=== PATIENT | male | born 1950 | race Caucasian/White ===

== ENCOUNTER 2023-06-14 08:04 | Outpatient (CLI) | payer MEDICARE, OTHER, SELFPAY ==
[2023-06-14 18:46] LABS: Anion Gap 7 mmol/L (8-16); Blood Urea Nitrogen 15 mg/dL (9-20); CRP < 0.5 mg/dL (<1.0); Calcium 9.5 mg/dL (8.4-10.2); Carbon Dioxide 30 mmol/L (22-30); Chloride 101 mmol/L (98-107); Cholesterol 158 mg/dL (0-200); Estimated Glomerular Filt Rate > 60; Glucose 106 mg/dL (65-110); HDL Direct 52 mg/dL; Sodium 138 mmol/L (137-145); Triglycerides 111 mg/dL (<150)
[2023-06-14 18:55] LABS: LDL Cholesterol Direct 76 mg/dL
[2023-06-14 19:32] LABS: Basophils Absolute Auto 0.1 K/mm3 (0.0-0.1); Basophils Percent Auto 1.3 % (0.2-1.2); Eosinophils Absolute Auto 0.2 K/mm3 (0-0.3); Eosinophils Percent Auto 3.6 % (0-4.4); Hematocrit 49.2 % (42.0-52.0); Hemoglobin 15.7 g/dL (14.0-18.0); Immature Granulocyte Absolute 0.01 K/mm3 (0.00-0.031); Immature Granulocyte Percent A 0.2 % (0-0.5); Lymphocytes Absolute Auto 1.99 K/mm3 (0.9-3.2); Lymphocytes Percent Auto 32.6 % (18.3-44.2); Mean Corpuscular HGB Conc 31.9 g/dl (32-36); Mean Corpuscular Hemoglobin 28.6 pg (26-34); Mean Corpuscular Volume 89.8 fl (80-100); Mean Platelet Volume 11.8 fl (7.4-10.4); Monocytes Absolute Auto 0.6 K/mm3 (0.1-0.6); Neutrophils Absolute Auto 3.2 K/mm3 (1.3-6.7); Neutrophils Percent Auto 52.3 % (45.5-73.1); Platelet Count Result 175 k/mm3 (150-375); Red Blood Count 5.48 M/mm3 (4.6-6.20); Red Cell Distribution Width 12.1 % (11.5-14.5); White Blood Count 6.1 K/mm3 (4.5-10.0)
[2023-06-14 19:59] LABS: Erythrocyte Sedimentation Rate 5 mm/hr (0-20)
== END 2023-06-14 08:05 | disposition home or self-care (01) ==
PROVIDERS: PCP Family Medicine; Visit Provider Family Medicine
DX: E78.2 Mixed hyperlipidemia (principal); I10 Essential (primary) hypertension; R73.03 Prediabetes; R76.8 Other specified abnormal immunological findings in serum
CPT/HCPCS: 36415; 80048; 80061; 83036; 85025; 85652; 86140

== ENCOUNTER → 2023-07-15 08:07 | Outpatient (CLI) | payer MEDICARE, OTHER, SELFPAY ==
--- NOTE | ~2023-07-15 | MR_ITS ---
MRI of the lumbar spine Clinical History: Sciatica Technique: Axial T2-weighted images, and sagittal T1-weighted, T2-weighted, and and T2 fat-sat images were acquired. Findings: There is no fracture or subluxation of the lumbar spine. Vertebral bodies maintain normal h eight and alignment. Intraosseous hemangioma noted in the L3 vertebral body. No suspicious bone marro w signal abnormality seen. At L1-L2, there is mild disc bulge with mild to moderate facet arthropathy. No central canal stenosis or neural foraminal narrowing. At L2-L3, there is mild disc bulge and minimal facet hypertrophy. No central canal stenosis or neural foraminal narrowing. L3-L4, there is degenerative disc narrowing. There is diffuse disc bulge and moderate facet arthropat hy, with mild central canal stenosis. There is moderate bilateral neural foraminal narrowing. At L4-L5, there is disc bulge, especially the right paracentral region, with advanced facet arthropat hy. There is right lateral recess stenosis without america central canal stenosis. There is moderate to advanced right neural foraminal narrowing, and mild left neural foraminal narrowing. At L5-S1, there is minimal disc bulge correlate with advanced facet arthropathy. There is mild right neural foraminal narrowing. No left neural foraminal narrowing. No central canal stenosis. Paravertebral soft tissues are unremarkable. Impression: Moderate degenerative spondylosis, as above. Reviewed, dictated and finalized at [facility]. [employer] INST[employer] Impression: Moderate degenerative spondylosis, as above.
== END ==
PROVIDERS: PCP Chiropractor; Visit Provider Family Medicine
DX: M54.30 Sciatica, unspecified side (principal); M54.17 Radiculopathy, lumbosacral region; M47.896 Other spondylosis, lumbar region
CPT/HCPCS: 72148

== ENCOUNTER 2023-12-13 08:02 | Outpatient (CLI) | payer MEDICARE, OTHER, SELFPAY ==
[2023-12-13 19:37] LABS: Alanine Aminotransferase 36 U/L (6-50); Albumin Level 4.5 g/dL (3.5-5.1); Alkaline Phosphatase 58 U/L (38-126); Anion Gap 5 mmol/L (4-12); Aspartate Amino Transferase 43 U/L (17-59); Bilirubin,Total 1.4 mg/dL (0.2-1.3); Blood Urea Nitrogen 24 mg/dL (9-20); Calcium 9.7 mg/dL (8.4-10.2); Carbon Dioxide 27 mmol/L (22-30); Chloride 104 mmol/L (98-107); Cholesterol 180 mg/dL (0-200); Estimated Glomerular Filt Rate > 60; Glucose 101 mg/dL (65-110); HDL Direct 65 mg/dL; Sodium 136 mmol/L (137-145); Triglycerides 105 mg/dL (<150)
[2023-12-13 19:52] LABS: LDL Cholesterol Direct 97 mg/dL
[2023-12-13 20:42] LABS: Hemoglobin A1C 5.8 % (<5.7)
== END 2023-12-13 08:03 | disposition home or self-care (01) ==
PROVIDERS: PCP Family Medicine; Visit Provider Family Medicine
DX: E11.9 Type 2 diabetes mellitus without complications (principal)
CPT/HCPCS: 36415; 80053; 80061; 83036

== ENCOUNTER 2024-07-04 07:55 | Outpatient (CLI) | payer MEDICARE, OTHER, SELFPAY ==
[2024-07-04 20:46] LABS: Alanine Aminotransferase 43 U/L (6-50); Albumin Level 4.5 g/dL (3.5-5.1); Alkaline Phosphatase 55 U/L (38-126); Anion Gap 9 mmol/L (4-12); Aspartate Amino Transferase 50 U/L (17-59); Bilirubin,Total 2.4 mg/dL (0.2-1.3); Blood Urea Nitrogen 27 mg/dL (9-20); Carbon Dioxide 27 mmol/L (22-30); Chloride 103 mmol/L (98-107); Estimated Glomerular Filt Rate > 60; Glucose 117 mg/dL (65-110); Potassium 4.1 mmol/L (3.4-5.0); Sodium 139 mmol/L (137-145)
[2024-07-04 20:52] LABS: Basophils Absolute Auto 0.1 K/mm3 (0.0-0.1); Basophils Percent Auto 1.4 % (0.2-1.2); Eosinophils Absolute Auto 0.1 K/mm3 (0-0.3); Eosinophils Percent Auto 2.1 % (0-4.4); Hematocrit 44.1 % (42.0-52.0); Hemoglobin 14.7 g/dL (14.0-18.0); Immature Granulocyte Absolute 0.02 K/mm3 (0.00-0.031); Immature Granulocyte Percent A 0.3 % (0-0.5); Lymphocytes Absolute Auto 1.66 K/mm3 (0.9-3.2); Lymphocytes Percent Auto 28.9 % (18.3-44.2); Mean Corpuscular HGB Conc 33.3 g/dl (32-36); Mean Corpuscular Hemoglobin 30.2 pg (26-34); Mean Corpuscular Volume 90.6 fl (80-100); Mean Platelet Volume 11.7 fl (7.4-10.4); Monocytes Absolute Auto 0.6 K/mm3 (0.1-0.6); Monocytes Percent Auto 11.1 % (2.6-8.5); Neutrophils Absolute Auto 3.2 K/mm3 (1.3-6.7); Neutrophils Percent Auto 56.2 % (45.5-73.1); Platelet Count Result 173 k/mm3 (150-375); Red Blood Count 4.87 M/mm3 (4.6-6.20); Red Cell Distribution Width 12.2 % (11.5-14.5); White Blood Count 5.8 K/mm3 (4.5-10.0)
[2024-07-04 21:46] LABS: Hemoglobin A1C 6.2 % (<5.7)
== END 2024-07-04 07:56 | disposition home or self-care (01) ==
PROVIDERS: PCP Family Medicine; Visit Provider Nurse Practitioner Family
DX: C43.9 Malignant melanoma of skin, unspecified (principal); E78.2 Mixed hyperlipidemia; E80.4 Gilbert syndrome; I10 Essential (primary) hypertension; R73.01 Impaired fasting glucose; R73.03 Prediabetes
CPT/HCPCS: 36415; 80053; 83036; 84443; 85025

== ENCOUNTER 2024-09-25 00:39 | Day surgery (SDC) | payer MEDICARE, OTHER, SELFPAY ==
[2024-09-17 15:07] VITALS: BMI 30.2
--- OUTSIDE RECORDS SUMMARY | 2024-09-25 00:43 | XMS_ITS | Encounter Summary ---
Author Organization [facility] Health Address [address] [facility] [place] [address] Care Team Providers Care Treater Helper Name Role Phone Jc Ascencio MD Primary Care Provider +1- [phone] Encounter Details Date Type Department Care Team (Late st Contact Info) Description 02/08/2020 Lab Requisition [facility] Care DermPath Lab [address] [facility], [place] [phone] Karis James MD [address] [facility] 3 [place] [address] Social History Tobacco Use Types Packs/Day Years Used Date Smoking Tobacco: Former Smokeless Tobacco: Never Alcohol Use Standard Drinks/Week Comments Yes 0 (1 standard drink = 0.6 oz pur e alcohol) Sex and Gender Information Value Date Recorded Sex Assigned at Not on file Gender Identity Not on file Sexual Orientation Not on file documented as of this encounter Plan of Treatment Not on file documented as of this encounter Procedures Procedure Name Priority Date/Time Associated Diagnosis Comments DERMATOPATHOLOGY Routine 02/07/2020 12:0 0 AM CDT documented in this encounter Results * DERMATOPATHOLOGY (02/07/2020 12:00 AM CDT) Case Report Dermatopathology Report ? Case: [id number] ? Authorizing Provider: ??Karis James MD ?Collected: ? 02/07/2020 12:00 AM ? Ordering Location: ? [facility] DermPath Lab ?Received: ?02/08/2020 09:18 AM ? Pathologist: ? Chetna Schilling MD ? Specimen: ?Skin, left back ? 0 2:53 PM CDT DERMATOPATHOLOGY LABORATORY Final Diagnosis Specimen A. SKIN, left back: LICHEN PLANUS-LIKE KERATOSIS (BENIGN LICHENOID KERATOSIS) (L82.1) 0 2:53 PM CDT DERMATOPATHOLOGY LABORATORY Clinical History R/O BCC, nevus, MM 0 2:53 PM CDT DERMATOPATHOLOGY LABORATORY Gross Description Specimen A: Received is one formalin filled container labeled with the patient's name and designated left back. The specimen consists of a shave biopsy measuring 9x6x1 mm. Jar 0. 0 2:53 PM CDT DERMATOPATHOLOGY LABORATORY Microscopic Description Specimen A. SKIN, left back: The epidermis is mildly acanthotic. There is a lichenoid infiltrate with vacuolar changes of basilar keratinocytes and scattered necrotic keratinocytes. 0 2:53 PM CDT DERMATOPATHOLOGY LABORATORY Disclaimer An external and internal positive and negative controls are appropriate for the histochemical, immunohistochemical and immunofluorescence stain(s) in this case (if any), except where stated explicitly. The performance characteristics of the stain(s) cited in this report were developed and its performance characteristic determined by the Dermatopathology Laboratory at [facility], directed by Dr. Shereen Awan. These tests need not be, and therefore are not, approved by the [place] Food and Drug Administration. The tests are used for clinical purposes. Billing Codes Specimen Charges Stain Charges 39629 1 0 2:53 PM CDT DERMATOPATHOLOGY LABORATORY Embedded Images 0 2:53 PM CDT DERMATOPATHOLOGY LABORATORY Pathology/Cytolog y TISSUE SPECIMEN FROM SKIN / Unknown 02/07/2020 02/08/2020 9:18 AM CDT Karis James MD LAB - PATHOLOGY/CYTO LOGY ORDERABLES DERMATOPATHOLOGY LABORATORY [facility] - Department of Dermatology [facility]/[address] [phone] documented in this encounter Visit Diagnoses Not on filedocumented in this encounter Care Teams Treater Helper Relationship Specialty Start Date End Date Jc Ascencio MD [facility] [place] [phone] PCP - General 01/09/14 documented as of this encounter
--- OUTSIDE RECORDS SUMMARY | 2024-09-25 00:43 | XMS_ITS | Encounter Summary ---
Author Organization [facility] Health Address [address] [facility] [address] Care Team Providers Care Rn Ccu Name Role Phone Jc Ascencio MD Primary Care Provider +1- [phone] Encounter Details Date Type Department Care Team (Late st Contact Info) Description 08/10/2023 Lab Requisition [facility] - DermPath Lab [address] [facility], [place] [address] Karis James MD [address] [facility] 3 [place] [address] Social History Tobacco Use Types Packs/Day Years [...] Priority Date/Time Associated Diagnosis Comments DERMATOPATHOLOGY Routine 08/10/2023 11:0 7 AM PERFUME COMPOUNDER documented in this encounter Results * DERMATOPATHOLOGY (08/10/2023 11:07 AM PERFUME COMPOUNDER) Case Report Dermatopathology Report ? Case: [id number] ? Authorizing Provider: ??Karis James MD ?Collected: ? 08/10/2023 11:07 AM ? Ordering Location: ? [facility] DermPath Lab ? Received: ?08/11/2023 12:52 PM ? Pathologist: ? Jessika Roldan MD ? Specimens: ?? A) - Skin, crown ? B) - Skin, left eyelid ? 3 3:35 PM PERFUME COMPOUNDER DERMATOPATHOLOGY LABORATORY Final Diagnosis Specimen A. 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 SKIN, left eyelid: SUBACUTE SPONGIOTIC DERMATITIS (L30.8) EPIDERMAL NECROSIS SUGGESTIVE OF EXCORIATION (L98.499) (see microscopic description and comment) 3 3:35 PM PERFUME COMPOUNDER DERMATOPATHOLOGY LABORATORY Clinical History A: [place] Papule SCC B: ACD/ Drug / Immunobullous 3 3:35 PM PERFUME COMPOUNDER DERMATOPATHOLOGY LABORATORY Gross Description Specimen A: Received is one formalin filled container labeled with the patient's name and designated crown. The specimen consists of a shave biopsy measuring 6x6x3 mm. Jar 0. Specimen B: Received is one formalin filled container labeled with the patient's name and designated left eyelid. The specimen consists of a punch biopsy measuring 3x2x3 mm. Jar 0. 3 3:35 PM [facility] DERMATOPATHOLOGY LABORATORY Microscopic Description Specimen A. SKIN, crown: The epidermis shows parakeratosis, full thickness disorderly maturation of keratinocytes, mitoses at different levels, and dyskeratotic cells. Specimen B. SKIN, left eyelid: There is focal parakeratosis and spongiosis of the epidermis. In the dermis there is a mainly superficial perivascular lymphoid infiltrate. Eosinophils are not appreciated. The epidermis is focally necrotic and covered with a scale-crust. There is fibrin at the base. A focal perifollicular lymphohistiocytic infiltrate is noted. Acantholysis is not seen. Grocott's methenamine silver (GMS) stain is negative for fungal elements in the sections examined. Additional deeper sections were obtained and reviewed. COMMENT: The histologic differential diagnosis includes an eczematous dermatitis, and less likely a hypersensitivity reaction, such as to contact or drug, given the lack of eosinophils. Although less favored, an immunobullous process cannot be entirely excluded. If there is clinical concern for a diagnosis of an immunobullous process, consideration should be given to submitting tissue for direct immunofluorescence. 3 3:35 PM [facility] DERMATOPATHOLOGY LABORATORY Disclaimer An external and internal positive and negative controls are appropriate for the histochemical, immunohistochemical and immunofluorescence stain(s) in this case (if any), except where stated explicitly. The performance characteristics of the stain(s) cited in this report were developed and its performance characteristic determined by the Dermatopathology Laboratory at [facility], directed by Dr. Shereen Awan. These tests need not be, and therefore are not, approved by the [place] Food and Drug Administration. The tests are used for clinical purposes. Billing Codes Specimen Charges Stain Charges 62465 11713 1 1 11380 18522 1 1 3 3:35 PM [facility] DERMATOPATHOLOGY LABORATORY Embedded Images 3 3:35 PM [facility] DERMATOPATHOLOGY LABORATORY Pathology/Cytology TISSUE SPECIMEN FROM SKIN / Unknown 08/10/2023 11:07 AM PERFUME COMPOUNDER 08/11/2023 12:52 PM PERFUME COMPOUNDER Miscellaneous samples (specimen) TISSUE SPECIMEN FROM SKIN / Unknown 08/10/2023 11:07 AM PERFUME COMPOUNDER 08/11/2023 12:52 PM PERFUME COMPOUNDER Karis James MD LAB - PATHOLOGY/CYTO LOGY ORDERABLES DERMATOPATHOLOGY LABORATORY [facility] - Department of Dermatology [facility] Medicine [address] [place] [address], [address] [phone] documented in this encounter Visit Diagnoses Not on filedocumented in this encounter Care Teams Rn Ccu Relationship Specialty Start Date End Date Jc Ascencio MD [address] [place] [phone] PCP - General 01/09/14 documented as of this encounter
--- OUTSIDE RECORDS SUMMARY | 2024-09-25 00:43 | XMS_ITS | Encounter Summary ---
Author Organization [facility] Health Address [address] [facility] [place] [address] Care Team Providers Care Schedule Clerk Name Role Phone Jc Ascencio MD Primary Care Provider +1- [phone] Encounter Details Date Type Department Care Team (Late st Contact Info) Description 11/08/2023 Lab Requisition [facility] - DermPath Lab [address] [facility], [place] [address] Karis James MD [address] [facility] [address] [place] [address] Social History Tobacco Use Types Packs/Day Years [...] Priority Date/Time Associated Diagnosis Comments DERMATOPATHOLOGY Routine 11/08/2023 9:32 AM CDT documented in this encounter Results * DERMATOPATHOLOGY (11/08/2023 9:32 AM CDT) Case Report Dermatopathology Report ? Case: [id number] ? Authorizing Provider: ??Karis James MD ?Collected: ? 11/08/2023 09:32 AM ? Ordering Location: ? [facility] - ??Received: ?11/09/2023 06:36 AM ? DermPath Lab ? Pathologist: ? Simone Awan MD ? Specimen: ?Skin, crown anterior ? 4 5:29 PM CDT DERMATOPATHOLOGY LABORATORY Final Diagnosis Specimen A. SKIN, crown anterior: HYPERPLASTIC (HYPERTROPHIC) ACTINIC KERATOSIS (L57.0) 4 5:29 PM CDT DERMATOPATHOLOGY LABORATORY Clinical History Tender [place] Papula [place] vs SCC 4 5:29 PM CDT DERMATOPATHOLOGY LABORATORY Gross Description Specimen A: Received is one formalin filled container labeled with the patient's name and designated crown anterior. The specimen consists of a shave biopsy measuring 4x4x2 mm. Jar 0. 4 5:29 PM CDT DERMATOPATHOLOGY LABORATORY Microscopic Description Specimen A. SKIN, crown anterior: There is hyperkeratosis alternating with parakeratosis. There is epidermal hyperplasia with disorderly maturation of keratinocytes with nuclear pleomorphism confined to the lower half of the epidermis. 4 5:29 PM CDT DERMATOPATHOLOGY LABORATORY Disclaimer An external and internal positive and negative controls are appropriate for the histochemical, immunohistochemical and immunofluorescence stain(s) in this case (if any), except where stated explicitly. The performance characteristics of the stain(s) cited in this report were developed and its performance characteristic determined by the Dermatopathology Laboratory at [facility], directed by Dr. Shereen Awan. These tests need not be, and therefore are not, approved by the [place] Food and Drug Administration. The tests are used for clinical purposes. Billing Codes Specimen Charges Stain Charges 46263 1 4 5:29 PM CDT DERMATOPATHOLOGY LABORATORY Embedded Images 4 5:29 PM CDT DERMATOPATHOLOGY LABORATORY Pathology/Cytolo gy TISSUE SPECIMEN FROM SKIN / Unknown 11/08/2023 9:32 AM CDT 11/09/2023 6:36 AM CDT Karis James MD LAB - PATHOLOGY/CYTO LOGY ORDERABLES DERMATOPATHOLOGY LABORATORY [facility] - Department of Dermatology [facility] Medicine [address] [place] [address], [address] [phone] documented in this encounter Visit Diagnoses Not on filedocumented in this encounter Care Teams Schedule Clerk Relationship Specialty Start Date End Date Jc Ascencio MD [address] [place] [phone] PCP - General 01/09/14 documented as of this encounter
--- OUTSIDE RECORDS SUMMARY | 2024-09-25 00:43 | XMS_ITS | Clinical Summary ---
Author Organization [facility] Address [address] [place] [address] Care Team Providers Care Engine Hostler Name Role Phone Jc Ascencio MD Primary Care Provider +1- [phone] Source Comments [facility] Affiliates and Associated Physician Practices is amultiple site organization consisting of ambulatory clinics and hospital sitesin [place], [place], [place] and [place]. This disclosure is being madepursuant to the Care Everywhere program and may not contain all information available regarding this patient. 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 Social History Tobacco Use Types Packs/Day Years Used Date Smoking Tobacco: Former Smokeless Tobacco: Never Alcohol Use Standard Drinks/Week Comments Yes 0 (1 standard drink = 0.6 oz pur e alcohol) Sex and Gender Information Value Date Recorded Sex Assigned at Not on file Gender Identity Not on file Sexual Orientation Not on file Last Filed Vital Signs Vital Sign Reading Time Taken Comments Blood Pressure 154/82 01/21/2016 9:07 AM CDT Pulse 74 01/21/2016 9:07 AM CDT Temperature 36.5 ??C (97.7 ??F) 01/21/2016 9:07 AM CD T Respiratory Rate - - Oxygen Saturation 95% 01/09/2014 9:13 AM CDT Inhaled Oxygen Concentration - - Weight 86.2 kg (190 lb) 01/21/2016 9:07 AM CDT Height 175.3 cm (5' 9 ) 01/21/2016 9:07 AM CDT Body Mass Index 28.06 01/21/2016 9:07 AM CDT Plan of Treatment Health Maintenance Due Date Last Done Comments NAEL (TRUPTI 45-75) - COL ON CA SCREENING 1949 COLON MONITORING 1949 COLONOSCOPY - COLON CA SCREENING 1949 CT COLONOGRAPHY - COLON CA SCREENING 1950 Colorectal Cancer Screening 1949 FIT - COLON CA SCREENING 1949 FLEX SIG - COLON CA SCREENING 1949 LIPID TESTING 1950 MEDICARE AWV ? 12 MONTHS 1950 HEPATITIS C SCREENING 01/23/1967 DTAP/TDAP/TD VACCINES (1 - Tdap) 01/28/1968 PNEUMOCOCCAL VACCINE 50+ (1 of 1 - PCV) 1999 ZOSTER VACCINE (1 of 2) 1999 Respiratory Syncytial Virus (RSV) Vaccine Pt: or over 60 yrs (1 - 1-dose 75+ series) 01/28/2024 COVID-19 VACCINE ( - 2023-2 5 season) 2024 INFLUENZA VACCINE (#1) 2024 DEPRESSION SCREENING 08/29/2024 HEPATITIS B VACCINE Aged Out No longe r eligible based on patient's age to complete this topic HIB VACCINE Aged Out No longer eligi ble based on patient's age to complete this topic HPV VACCINE Aged Out No longer eligi ble based on patient's age to complete this topic MENINGOCOCCAL (Group B) VACCINE Aged Out No longer eligible based on patient's age to complete this topic MENINGOCOCCAL VACCINE Aged Out No rodrigue clifford eligible based on patient's age to complete this topic Care Teams Engine Hostler Relationship Specialty Start Date End Date Jc Ascencio MD [address] [place] [phone] PCP - General 01/09/14
--- OUTSIDE RECORDS SUMMARY | 2024-09-25 00:43 | XMS_ITS | Referral Summary ---
Author Organization [facility] Address [address] [place] [address] Care Team Providers Care Senior Principal Architect Name Role Phone Jc Ascencio MD Primary Care Provider +1- [phone] [facility] Affiliates and Associated Physician Practices is amultiple site organization consisting of ambulatory clinics and hospital sitesin [place], [place], [place] and [place]. This disclosure is being madepursuant to the Care Everywhere program and may not contain all information available regarding this patient. Last updated 18.[facility] Active Problems Problem Noted Date Diagnosed Date [...] 01/21/2016 9:07 AM CDT Plan of Treatment Not on file Care Teams Senior Principal Architect Relationship Specialty Start Date End Date Jc Ascencio MD [address] [place] [phone] PCP - General 01/09/14
--- OUTSIDE RECORDS SUMMARY | 2024-09-25 00:43 | XMS_ITS | Encounter Summary ---
Author Organization [facility] Health Address [address] [facility] [place] [address] Care Team Providers Care Last Greaser Name Role Phone Jc Ascencio MD Primary Care Provider +1- [phone] Encounter Details Date Type Department Care Team (Late st Contact Info) Description 03/26/2024 Lab Requisition [facility] - DermPath Lab [address] [facility] [place] [address] Karis James MD [address] [facility] 3 [place] [address] Social History Tobacco Use Types Packs/Day Years [...] Priority Date/Time Associated Diagnosis Comments DERMATOPATHOLOGY Routine 03/26/2024 10:1 4 AM CDT documented in this encounter Results * DERMATOPATHOLOGY (03/26/2024 10:14 AM CDT) Case Report Dermatopathology Report ? Case: [id number] ? Authorizing Provider: ??Karis James MD ?Collected: ? 03/26/2024 10:14 AM ? Ordering Location: ? [facility] - ??Received: ?03/26/2024 04:25 PM ? DermPath Lab ? Pathologist: ? Fide Rizzo, ? MD ? Specimen: ?Skin, back ? 4 11:44 AM CDT DERMATOPATHOLOGY LABORATORY Final Diagnosis Specimen A. SKIN, back: GRANULOMATOUS DERMATITIS CONSISTENT WITH A RUPTURED CYST OR HAIR FOLLICLE (L72.0) 4 11:44 AM CDT DERMATOPATHOLOGY LABORATORY Clinical History R/o BCC; pink papule 11:44 AM CDT DERMATOPATHOLOGY LABORATORY Gross Description Specimen A: Received is one formalin filled container labeled with the patient's name and designated back. The specimen consists of a shave biopsy measuring 4x4x1 mm. Jar 0. 4 11:44 AM T DERMATOPATHOLOGY LABORATORY Microscopic Description Specimen A. SKIN, back: Neutrophils, histiocytes, and multinucleated giant cells are present within the dermis. 4 11:44 AM T DERMATOPATHOLOGY LABORATORY Disclaimer An external and internal positive and negative controls are appropriate for the histochemical, immunohistochemical and immunofluorescence stain(s) in this case (if any), except where stated explicitly. The performance characteristics of the stain(s) cited in this report were developed and its performance characteristic determined by the Dermatopathology Laboratory at [facility], directed by Dr. Shereen Awan. These tests need not be, and therefore are not, approved by the [place] Food and Drug Administration. The tests are used for clinical purposes. Billing Codes Specimen Charges Stain Charges 51511 1 4 11:44 AM CDT DERMATOPATHOLOGY LABORATORY Embedded Images 11:44 AM CDT DERMATOPATHOLOGY LABORATORY Pathology/Cytolo gy TISSUE SPECIMEN FROM SKIN / Unknown 03/26/2024 10:14 AM CDT 03/26/2024 4:25 PM CDT Karis James MD LAB - PATHOLOGY/CYTO LOGY ORDERABLES DERMATOPATHOLOGY LABORATORY [facility] - Department of Dermatology [facility] Medicine [address] [place] [address], [address] [phone] documented in this encounter Visit Diagnoses Not on filedocumented in this encounter Care Teams Last Greaser Relationship Specialty Start Date End Date Jc Ascencio MD [address] [place] [phone] PCP - General 01/09/14 documented as of this encounter
--- OUTSIDE RECORDS SUMMARY | 2024-09-25 00:43 | XMS_ITS | Encounter Summary ---
Author Organization [facility] Health Address [address] [place] [address] Care Team Providers Care Top Flavor Attendant Name Role Phone Jc Ascencio MD Primary Care Provider +1- [phone] Encounter Details Date Type Department Care Team (Late st Contact Info) Description 01/11/2019 Lab Requisition [facility] DermPath Lab [address] [place] [phone] Karis James MD [address] [facility] 3 [place] [address] Social History Tobacco Use Types Packs/Day Years [...] Priority Date/Time Associated Diagnosis Comments DERMATOPATHOLOGY Routine 01/10/2019 12:0 0 AM CDT documented in this encounter Results * DERMATOPATHOLOGY (01/10/2019 12:00 AM CDT) Case Report Dermatopathology Report ? Case: [id number] ? Authorizing Provider: ??Karis James MD ?Collected: ? 01/10/2019 12:00 AM ? Pathologist: ? Simone Awan MD ? Received: ?01/11/2019 06:18 AM ? Specimen: ?Skin, left lat cheek ? 9 2:30 PM CDT DERMATOPATHOLOGY LABORATORY Final Diagnosis Specimen A. SKIN, left lat cheek: BASAL CELL CARCINOMA, INFILTRATIVE PATTERN (C44.319) 9 2:30 PM CDT DERMATOPATHOLOGY LABORATORY Clinical History Pearly papule adj to prior MM favor BCC 9 2:30 PM CDT DERMATOPATHOLOGY LABORATORY Gross Description Specimen A: Received is one formalin filled container labeled with the patient's name and designated left lat cheek. The specimen consists of a shave biopsy measuring 11x8x1 mm. Jar 0. 9 2:30 PM CDT DERMATOPATHOLOGY LABORATORY Microscopic Description Specimen A. SKIN, left lat cheek: Within the dermis there are nodular aggregates of basaloid cells associated with fibromyxoid stroma and epithelial-stromal clefts. At the advancing margin of the neoplasm, there are smaller angulated nests that infiltrate the dermis. 9 2:30 PM CDT DERMATOPATHOLOGY LABORATORY Disclaimer An external and internal positive and negative controls are appropriate for the histochemical, immunohistochemical and immunofluorescence stain(s) in this case (if any), except where stated explicitly. The performance characteristics of the stain(s) cited in this report were developed and its performance characteristic determined by the Dermatopathology Laboratory at [facility], directed by Dr. Shereen Awan. These tests need not be, and therefore are not, approved by the [place] Food and Drug Administration. The tests are used for clinical purposes. Billing Codes Specimen Charges Stain Charges 76541 1 9 2:30 PM CDT DERMATOPATHOLOGY LABORATORY Embedded Images 9 2:30 PM CDT DERMATOPATHOLOGY LABORATORY Pathology/Cytolog y TISSUE SPECIMEN FROM SKIN / Unknown 01/10/2019 01/11/2019 6:18 AM CDT Karis James MD LAB - PATHOLOGY/CYTO LOGY ORDERABLES DERMATOPATHOLOGY LABORATORY [facility] - Department of Dermatology [address] [place] [address], 5th Floor Lab B [address] [phone] documented in this encounter Visit Diagnoses Not on filedocumented in this encounter Care Teams Top Flavor Attendant Relationship Specialty Start Date End Date Jc Ascencio MD [facility] [place] [address] PCP - General 01/09/14 documented as of this encounter
--- OUTSIDE RECORDS SUMMARY | 2024-09-25 00:43 | XMS_ITS | Patient Health Summary ---
Author Organization [facility] Address [address] [place] [address] Care Team Providers Care C Wpf Developer Name Role Phone Jc Ascencio MD Primary Care Provider [phone]- [phone] Note from [facility],non-owned Affiliates and Associated Physician Practices is amultiple site organization consisting of ambulatory clinics and hospital sitesin [place], [place], [place] and [place]. This disclosure is being madepursuant to the Care Everywhere program and may not contain all information available regarding this patient. Last updated 18.[facility] Active Problems Problem Noted Date Diagnosed Date [...] Mass Index 28.06 01/21/2016 9:07 AM CDT Procedures * DERMATOPATHOLOGY(Performed 03/26/2024) * DERMATOPATHOLOGY(Performed 11/08/2023) * DERMATOPATHOLOGY(Performed 08/10/2023) * DERMATOPATHOLOGY(Performed 09/29/2022) * DERMATOPATHOLOGY(Performed 03/18/2022) * DERMATOPATHOLOGY(Performed 09/07/2021) * DERMATOPATHOLOGY(Performed 02/23/2021) * DERMATOPATHOLOGY(Performed 02/07/2020) * DERMATOPATHOLOGY(Performed 01/10/2019) * COMPREHENSIVE METABOLIC PANEL(Performed 01/21/2016) * CBC W/O DIFFERENTIAL(Performed 01/21/2016) * XR CHEST 2VW(Performed 01/21/2016) * XR CHEST 2VW(Performed 01/15/2015) * COMPREHENSIVE METABOLIC PANEL(Performed 01/15/2015) * CBC W/O DIFFERENTIAL(Performed 01/15/2015) * COMPREHENSIVE METABOLIC PANEL(Performed 01/09/2014) * CBC W/O DIFFERENTIAL(Performed 01/09/2014) * XR CHEST 2VW(Performed 01/09/2014) * XR CHEST 2VW(Performed 01/03/2013) * COMPREHENSIVE METABOLIC PANEL(Performed 01/03/2013) * CBC W/O DIFFERENTIAL(Performed 01/03/2013) * DERMATOPATHOLOGY(Performed 12/28/2012) * XR CHEST 2VW(Performed 07/05/2012) * CBC W/O DIFFERENTIAL(Performed 07/05/2012) * COMPREHENSIVE METABOLIC PANEL(Performed 07/05/2012) * DERMATOPATHOLOGY(Performed 06/08/2012) * CBC W/O DIFFERENTIAL(Performed 01/05/2012) * COMPREHENSIVE METABOLIC PANEL(Performed 01/05/2012) * DERMATOPATHOLOGY(Performed 11/25/2011) * COMPREHENSIVE METABOLIC PANEL(Performed 06/30/2011) * CBC W/O DIFFERENTIAL(Performed 06/30/2011) * PATHOLOGY/GENETICS HISTORICAL-ONBASE(Performed 04/16/2011) * PATHOLOGY REPORTS - HPF HISTORICAL(Performed 06/19/2010) Results * DERMATOPATHOLOGY (03/26/2024 10:14 AM CDT) Only the most recent of12 resultswithin the time period is included. Case Report Dermatopathology Report ? Case: [id number] ? Authorizing Provider: ??Karis James MD ?Collected: ? 03/26/2024 10:14 AM ? Ordering Location: ? [facility] - ??Received: ?03/26/2024 04:25 PM ? DermPath Lab ? Pathologist: ? Fide Rizzo, ? MD ? Specimen: ?Skin, back ? 4 11:44 AM CDT DERMATOPATHOLOGY LABORATORY Final Diagnosis Specimen A. SKIN, back: GRANULOMATOUS DERMATITIS CONSISTENT WITH A RUPTURED CYST OR HAIR FOLLICLE (L72.0) 11:44 AM T DERMATOPATHOLOGY LABORATORY Clinical History R/o BCC; pink papule 11:44 AM CDT DERMATOPATHOLOGY LABORATORY Gross Description Specimen A: Received is one formalin filled container labeled with the patient's name and designated back. The specimen consists of a shave biopsy measuring 4x4x1 mm. Jar 0. 11:44 AM T DERMATOPATHOLOGY LABORATORY Microscopic Description Specimen A. SKIN, back: Neutrophils, histiocytes, and multinucleated giant cells are present within the dermis. 11:44 AM T DERMATOPATHOLOGY LABORATORY Disclaimer An external and internal positive and negative controls are appropriate for the histochemical, immunohistochemical and immunofluorescence stain(s) in this case (if any), except where stated explicitly. The performance characteristics of the stain(s) cited in this report were developed and its performance characteristic determined by the Dermatopathology Laboratory at [facility], directed by Dr. Shereen Awan. These tests need not be, and therefore are not, approved by the [place] Food and Drug Administration. The tests are used for clinical purposes. Billing Codes Specimen Charges Stain Charges 88384 1 11:44 AM CDT DERMATOPATHOLOGY LABORATORY Embedded Images 11:44 AM CDT DERMATOPATHOLOGY LABORATORY Pathology/Cytolo gy TISSUE SPECIMEN FROM SKIN / Unknown 03/26/2024 10:14 AM CDT 03/26/2024 4:25 PM CDT Karis James MD LAB - PATHOLOGY/CYTO LOGY ORDERABLES DERMATOPATHOLOGY LABORATORY [facility] - Department of Dermatology [address], [address] [phone] * CBC W/O DIFFERENTIAL (01/21/2016 10:24 AM CDT) Only the most recent of7 resultswithin the time period is included. WBC 4.9 3.5 - 10.5 10? 3 /uL [facility] RBC 5.10 4.30 - 5.70 10? 6 /uL [facility] Hemoglobin 14.8 13.5 - 17.5 g/dL [facility] Hematocrit 44.6 39.0 - 50.0 % [facility] MCV 87.5 81.0 - 97.0 fL [facility] MCH 29.0 28.0 - 34.0 pg [facility] MCHC 33.2 32.0 - 36.0 g/dL [facility] Platelet Count 166 150 - 400 10? 3 /uL [facility] RDW-SD 41.4 36.0 - 50.0 fL [facility] RDW-CV 12.9 11.2 - 14.8 % [facility] MPV 11.7 9.3 - 12.8 fL [facility] nRBC Absolute 0.00 0 10? 3 /uL [facility] nRBC Auto 0.0 0 /100 WBC [facility] Blood specimen (specimen) BLOOD SPECIMEN / Unknown 01/21/2016 10:24 AM CDT 01/21/2016 10:50 AM CDT Bradley Walters MD LAB - HEMATOLOGY ORD ERABLES [address] [phone] * (ABNORMAL) COMPREHENSIVE METABOLIC PANEL (01/21/2016 10:24 AM CDT) Only the most recent of7 resultswithin the time period is included. BUN 18 7 - 26 mg/dL [facility] Creatinine 1.0 0.6 - 1.2 mg/dL [facility] Sodium 140 136 - 145 mmol/L [facility] Potassium 4.6(H) 3.5 - 4.5 mmol/L [facility] Chloride 105 98 - 107 mmol/L [facility] CO2 27 22 - 29 mmol/L [facility] Glucose 99 70 - 115 mg/dL [facility] Calcium 9.7 8.4 - 10.2 mg/dL [facility] Protein Total 7.4 6.0 - 8.3 g/dL [facility] Albumin 4.3 3.4 - 5.0 g/dL [facility] [address] LABORATORY [facility] Bilirubin Total 1.1 0.2 - 1.2 mg/dL [facility] Alkaline Phosphatase 56 40 - 150 Units/L [facility] ALT 20 0 - 55 Units/L [facility] AST 24 5 - 34 Units/L [facility] Anion Gap 13 8 - 18 [facility] BUN/Creatinine Ratio 18 7 - 23 [facility] Osmolality Calculated 292 270 - 300 mOsm/kg [facility] Albumin/Globulin Ratio 1.4 1.1 - 2.3 [facility] eGFR >60 >60 mL/min/1.7 3 m2 [facility] Blood specimen (specimen) BLOOD SPECIMEN / Unknown 01/21/2016 10:24 AM CDT 01/21/2016 10:50 AM CDT Bradley Walters MD LAB - CHEMISTRY [facility] Organization Address City/State/ZIP Co de Phone Number [address] [phone] * XR CHEST 2VW (01/21/2016 10:14 AM CDT) Only the most recent of5 resultswithin the time period is included. Anatomical Region Laterality Modality Chest Other Impressions 01/22/2016 4:06 PM CDT Impression: No radiographic evidence of metastatic disease Dictated by Sachin Hernandez MD This report was approved ??by Ran Hernandez ?? on 01/22/2016 3:37 PM . I, Dr. ERICA MIRZA M.D. have personally reviewed and interpreted this examination/study. This report was electronically signed by ERICA MIRZA M.D. ??on 01/22/2016 4:06 PM . Narrative 01/22/2016 4:06 PM CDT Exam: XR CHEST PA AND LATERAL Date: 01/21/2016 10:14 AM History: melanoma Comparison: 01/15/2015 Findings: There is no focal consolidation, pleural effusion, or pneumothorax. ??The cardiomediastinal silhouette is normal. The aorta is atherosclerotic. The visible bony thorax is intact. Procedure Note Erica Mirza MD - 11/26/2017 Exam: XR CHEST PA AND LATERAL Date: 01/21/2016 10:14 AM History: melanoma Comparison: 01/15/2015 Findings: There is no focal consolidation, pleural effusion, or pneumothorax. Thecardiomediastinal silhouette is normal. The aorta is atherosclerotic. Thevisible bony thorax is intact. IMPRESSION Impression: No radiographic evidence of metastatic disease Dictated by Sachin Hernandez MD This report was approved by Ran Hernandez on 01/22/2016 3:37 PM . I, Dr. ERICA MIRZA M.D. have personally reviewed and interpreted thisexamination/study. This report was electronically signed by ERICA MIRZA M.D. on 01/22/20164:06 PM . Bradley Walters MD DIAGNOSTIC IMAGING O RDERABLES * PATHOLOGY/GENETICS HISTORICAL-ONBASE (04/16/2011) 04/16/2011 Historical Provider LAB - CHEMISTRY O RDGUSTAVO [facility] * PATHOLOGY REPORTS - HPF HISTORICAL (06/19/2010 6:40 PM CDT) 06/19/2010 6:40 PM CDT Narrative [facility] - 06/19/2010 6:40 PM CDT Bradley Walters MD LAB - PATHOLOGY/CYTO LOGY ORDERABLES [facility] Care Teams C Wpf Developer Relationship Specialty Start Date End Date Jc Ascencio MD [address] [place] [phone] PCP - General 01/09/14
--- NOTE | 2024-09-25 06:42 | WPDANESEPPF ---
Anes - Initial Pre Proc Eval Procedure: Operation Date: 09/25/24 08:00 Proposed Procedures p Colonoscopy - Vincenzo Sumner MD Date/Time: 09/25/24 06:42 Surgeon: Vincenzo Sumner MD Pre Op Diagnosis: Personal Hx of colon polyps Patient Data Age: 74 Gender: M Height: 1.78 m Weight: 95.5 kg Allergies Allergy/AdvReac Type Severity Reaction Status Date / Time No Known Allergies Allergy Verified 09/17/24 14:58 Home Medications ?Medication ?Instructions ?Recorded ?Confirmed ?Type simvastatin 20 mg tablet See Rx Instructions .Route 06/14/24 09/17/24 Rx .COMPLEX #90 tabs lisinopril 20 1 tablet PO DAILY #90 tabs 07/10/24 09/17/24 Rx mg-hydrochlorothiazide 12.5 mg tablet metoprolol succinate 25 mg 25 mg PO DAILY #90 tabs 07/10/24 09/17/24 Rx tablet,extended release 24 hr Patient hx anesthesia problems: none Family hx anesthesia problems: none Results Review: All pre-operative results and documents have been reviewed as part of the pre-operative evaluation. [facility] Past Medical History Medical History Personal history of malignant neoplasm of prostate H/O prostate cancer Arthritis Hypertension Hyperlipidemia Family History Family History Father Family history of cardiovascular disease Mother Family history of malignant neoplasm Other Family history of elevated blood lipids Hypertension Malignant neoplasm of prostate Social History Social History Smoking status: Never smoker Smoking end date: 08/29/81 Alcohol intake: former Alcohol use details: NONE DUE TO August BUT WILL RESUME IN SEP Substance use: never Substance use type: does not use Lack of Transportation: No Lack of Food: Never True Current Housing: I Have Housing Concerned About Future Housing: No Difficulty Paying Gas/Electric Bills: No Difficulty Paying for Meds: Decline to Answer Currently Unemployed: Decline to Answer Education: Bachelor's Degree Difficulty w/ Childcare or Family Care: Decline to Answer Living arrangements: with family Spiritual care concerns: No Anes - Eval Final PreProcedure Day of Procedure 09/25/24 06:42 Patient weight: overweight Heart: regular rate and rhythm Lungs: clear to auscultation Airway: Mallampati scale class II Neurological: alert and oriented Last oral intake: >/= 8 hours ASA classification: II Emergent: no Anesthetic plan: proceed Anesthesia type and monitoring: general GIVS and standard monitoring Results Review: All pre-operative results and documents have been reviewed as part of the pre-operative evaluation. HTN, hyperlipidemia. Informed Consent: The patient's anesthetic plan and its attendant risks and benefits were discussed with the patient/family/POA. Questions were solicited and answers provided to the satisfaction of the patient/family/POA.
[2024-09-25 06:50] VITALS: BP 148/79; PULSE 70; RESP 18; TEMP 36; O2SAT 97; BMI 29.5
[2024-09-25] MEDS: LACTATED RINGERS 1,000 ML 150 ML IV CONT (06:59)
--- NOTE | 2024-09-25 07:57 | PM.IMHP ---
H&P: HPI History of Present Illness Date/Time: 09/25/24 07:57 Chief Complaint: History of colon polyps Narrative: The patient has a history of colonic polyps, the last colonoscopy was 5 years ago. Review of Systems Review of Systems: All systems reviewed & are unremarkable except as noted in HPI and below PMFSH Past Medical History Medical History Personal history of malignant neoplasm of prostate H/O prostate cancer Arthritis Hypertension Hyperlipidemia Family History Family History Father Family history of cardiovascular disease Mother Family history of malignant neoplasm Other Family history of elevated blood lipids Hypertension Malignant neoplasm of prostate Social History Social History Smoking status: Never smoker Smoking end date: 08/29/81 Alcohol intake: former Alcohol use details: NONE DUE TO August BUT WILL RESUME IN SEP Substance use: never Substance use type: does not use Lack of Transportation: No Lack of Food: Never True Current Housing: I Have Housing Concerned About Future Housing: No Difficulty Paying Gas/Electric Bills: No Difficulty Paying for Meds: Decline to Answer Currently Unemployed: Decline to Answer Education: Bachelor's Degree Difficulty w/ Childcare or Family Care: Decline to Answer Living arrangements: with family Spiritual care concerns: No Meds Home Medications and Allergies Home Medications ?Medication ?Instructions ?Recorded ?Confirmed ?Type simvastatin 20 mg tablet See Rx Instructions .Route 06/14/24 09/25/24 Rx .COMPLEX #90 tabs lisinopril 20 1 tablet PO DAILY #90 tabs 07/10/24 09/25/24 Rx mg-hydrochlorothiazide 12.5 mg tablet metoprolol succinate 25 mg 25 mg PO DAILY #90 tabs 07/10/24 09/25/24 Rx tablet,extended release 24 hr Allergies Allergy/AdvReac Type Severity Reaction Status Date / Time No Known Allergies Allergy Verified 09/25/24 06:48 Vital Signs Vital Signs - 24 hr 09/25/24 06:50 Temperature 96.8 F L Pulse Rate 70 Respiratory Rate 18 Blood Pressure 148/79 H Pulse Oximetry 97 Oxygen Delivery Room Air Exam Const: General: cooperative and healthy appearing Resp: Effort & Inspection: normal respiratory effort and able to speak in complete sentences Auscultation: clear to auscultation bilaterally Cardio: Rate: regular rate Rhythm: regular rhythm GI: Inspection: normal to inspection GI Palp: No No hepatosplenomegaly present Auscultation: normal bowel sounds Rectal Exam: deferred Skin: General skin exam: normal color Psych: Appearance: grossly normal Mental Status: mental status grossly normal Assessment and Plan Assessment and plan (1) Polyp of colon: Code(s): K63.5 - Polyp of colon Status: Acute Assessment and Plan: The patient is deemed a good candidate for the procedure. Consent signed. Will proceed.
[2024-09-25 08:26] VITALS: BP 96/58; PULSE 56; RESP 14; O2SAT 94
[2024-09-25 08:36] VITALS: BP 121/75; PULSE 59; RESP 16; O2SAT 97
[2024-09-25 08:46] VITALS: BP 125/76; PULSE 55; RESP 21; O2SAT 97
== END 2024-09-25 09:13 | disposition home or self-care (01) ==
PROVIDERS: PCP Family Medicine; Referring Provider Nurse Practitioner Family; Visit Provider Internal Medicine Gastroenterology
PROC: 0DJD8ZZ Inspection of Lower Intestinal Tract, Via Natural or Artificial Opening Endoscopic (ICD-10-PCS; CPT 45378; principal; 2024-09-25 08:00)
DX: Z12.11 Encounter for screening for malignant neoplasm of colon (principal); D12.3 Benign neoplasm of transverse colon; K57.30 Diverticulosis of large intestine without perforation or abscess without bleeding
CPT/HCPCS: 45385; 88305; J2704; J7120

== ENCOUNTER 2025-01-09 07:58 | Outpatient (CLI) | payer MEDICARE, OTHER, SELFPAY ==
--- OUTSIDE RECORDS SUMMARY | 2025-01-09 08:01 | XMS_ITS | Encounter Summary ---
Author Organization [facility] Health Address [address] [facility] [place] [address] Care Team Providers Care Chief Lifestyle Officer Name Role Phone Jc Ascencio MD Primary Care Provider +1- [phone] Encounter Details Date Type Department Care Team (Late st Contact Info) Description 01/11/2019 Lab Requisition [facility] Care DermPath Lab [address] [facility] [place] [phone] Karis James MD [address] [facility] [address] [place] [address] Social History Tobacco Use Types Packs/Day Years Used Date Smoking Tobacco: Former Smokeless Tobacco: Never Alcohol Use Standard Drinks/Week Comments Yes 0 (1 standard drink = 0.6 oz pur e alcohol) Sex and Gender Information Value Date Recorded Sex Assigned at Not on file 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 Gender Identity Not on file Sexual Orientation Not on file documented as of this encounter Plan of Treatment Not on file documented as of this encounter Procedures Procedure Name Priority Date/Time Associated Diagnosis Comments DERMATOPATHOLOGY Routine 01/10/2019 12:0 0 AM CDT documented in this encounter Results * DERMATOPATHOLOGY (01/10/2019 12:00 AM CDT) Case Report Dermatopathology Report Case: [id number] Authorizing Provider: Karis James MD Collected: 01/10/2019 12:00 AM Pathologist: Simone Awan MD Received: 01/11/2019 06:18 AM Specimen: Skin, left lat cheek 9 2:30 PM CDT DERMATOPATHOLOGY LABORATORY Final Diagnosis Specimen A. SKIN, left lat cheek: BASAL CELL CARCINOMA, INFILTRATIVE PATTERN (C44.319) 2:30 PM CDT DERMATOPATHOLOGY LABORATORY Clinical History Pearly papule adj to prior MM favor BCC 2:30 PM CDT DERMATOPATHOLOGY LABORATORY Gross Description Specimen A: Received is one formalin filled container labeled with the patient's name and designated left lat cheek. The specimen consists of a shave biopsy measuring 11x8x1 mm. Jar 0. 2:30 PM CDT DERMATOPATHOLOGY LABORATORY Microscopic Description Specimen A. SKIN, left lat cheek: Within the dermis there are nodular aggregates of basaloid cells associated with fibromyxoid stroma and epithelial-stromal clefts. At the advancing margin of the neoplasm, there are smaller angulated nests that infiltrate the dermis. 2:30 PM CDT DERMATOPATHOLOGY LABORATORY Disclaimer An external and internal positive and negative controls are appropriate for the histochemical, immunohistochemical and immunofluorescence stain(s) in this case (if any), except where stated explicitly. The performance characteristics of the stain(s) cited in this report were developed and its performance characteristic determined by the Dermatopathology Laboratory at [facility], directed by Dr. Shereen Awan. These tests need not be, and therefore are not, approved by the [place] Food and Drug Administration. The tests are used for clinical purposes. Billing Codes Specimen Charges Stain Charges 98440 1 2:30 PM CDT DERMATOPATHOLOGY LABORATORY Embedded Images 2:30 PM CDT DERMATOPATHOLOGY LABORATORY Pathology/Cytolog y TISSUE SPECIMEN FROM SKIN / Unknown 01/10/2019 01/11/2019 6:18 AM CDT us Karis James MD LAB - PATHOLOGY/CYTOLOGY ORD ERABLES Final Result DERMATOPATHOLOGY LABORATORY [facility] - Department of Dermatology [address] [place] [address], 5th [place] [address], [facility] [phone] documented in this encounter Visit Diagnoses Not on filedocumented in this encounter Care Teams Chief Lifestyle Officer Relationship Specialty Start Date End Date Jc Ascencio MD [address] [place] [phone] PCP - General 01/09/14 documented as of this encounter
--- OUTSIDE RECORDS SUMMARY | 2025-01-09 08:01 | XMS_ITS | Patient Health Record ---
Author Organization [facility] Address [address] [facility] [address] [place] [address] Care Team Providers Care Forensic Anthropologist Name Role Phone JHONNY STALEY Unavailable [phone] Reason For Referral No Information Plan Of Treatment No Information Insurance Providers Payer Name Payer Address Payer Phone Subscriber Number Group Number Insured Name Patient Relationship to Insured Coverage Start Date Coverage End Date [facility] [address] [place] [address] [id number] Zurdo Barriga Self - patient is the insured 9
--- OUTSIDE RECORDS SUMMARY | 2025-01-09 08:02 | XMS_ITS | Encounter Summary ---
Author Organization [facility] Address [address] [facility] [place] [address] Care Team Providers Care Rn Surgical Pcu Name Role Phone Jc Ascencio MD Primary Care Provider +1- [phone] Encounter Details Date Type Department Care Team (Late st Contact Info) Description 11/08/2023 Lab Requisition [facility] - DermPath Lab [address] [facility], [place] [address] Karis James MD [address] [facility] 3 [place] [address] Social History Tobacco Use Types Packs/Day Years Used Date Smoking Tobacco: Former Smokeless Tobacco: Never Alcohol Use Standard Drinks/Week Comments Yes 0 (1 standard drink = 0.6 oz pur e alcohol) Sex and Gender Information Value Date Recorded Sex Assigned at Not on file 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 Gender Identity Not on file Sexual Orientation Not on file documented as of this encounter Plan of Treatment Not on file documented as of this encounter Procedures Procedure Name Priority Date/Time Associated Diagnosis Comments DERMATOPATHOLOGY Routine 11/08/2023 9:32 AM CDT documented in this encounter Results * DERMATOPATHOLOGY (11/08/2023 9:32 AM CDT) Case Report Dermatopathology Report Case: [id number] Authorizing Provider: Karis James MD Collected: 11/08/2023 09:32 AM Ordering Location: [facility] - Received: 11/09/2023 06:36 AM DermPath Lab Pathologist: Simone Awan MD Specimen: Skin, crown anterior 4 5:29 PM CDT DERMATOPATHOLOGY LABORATORY Final Diagnosis Specimen A. SKIN, crown anterior: HYPERPLASTIC (HYPERTROPHIC) ACTINIC KERATOSIS (L57.0) 4 5:29 PM CDT DERMATOPATHOLOGY LABORATORY Clinical History Tender [place] Papula [place] vs SCC 4 5:29 PM [...] characteristic determined by the Dermatopathology Laboratory at [facility], directed by Dr. Shereen Awan. These tests need not be, and therefore are not, approved by the [place] Food and Drug Administration. The tests are used for clinical purposes. Billing Codes Specimen Charges Stain Charges 92683 1 4 5:29 PM CDT DERMATOPATHOLOGY LABORATORY Embedded Images 4 5:29 PM CDT DERMATOPATHOLOGY LABORATORY Pathology/Cytolo gy TISSUE SPECIMEN FROM SKIN / Unknown 11/08/2023 9:32 AM CDT 11/09/2023 6:36 AM CDT us Karis James MD LAB - PATHOLOGY/CYTOLOGY ORD ERABLES Final Result DERMATOPATHOLOGY LABORATORY [facility] - Department of Dermatology [address], [address] Floor [address] [phone] documented in this encounter Visit Diagnoses Not on filedocumented in this encounter Care Teams Rn Surgical Pcu Relationship Specialty Start Date End Date Jc Ascencio MD [address] [place] [phone] PCP - General 01/09/14 documented as of this encounter
--- OUTSIDE RECORDS SUMMARY | 2025-01-09 08:02 | XMS_ITS | Encounter Summary ---
Author Organization [facility] Address [address] [facility] [place] [address] Care Team Providers Care Public Health Informatician Name Role Phone Jc Ascencio MD Primary Care Provider +1- [phone] Encounter Details Date Type Department Care Team (Late st Contact Info) Description 03/26/2024 Lab Requisition [facility] - DermPath Lab [address] [facility], [place] [address] Karis James MD [address] [facility] 3 [place] [address] Social History Tobacco Use Types Packs/Day Years Used Date Smoking Tobacco: Former Smokeless Tobacco: Never Alcohol Use Standard Drinks/Week Comments Yes 0 (1 standard drink = 0.6 oz pur e alcohol) Sex and Gender Information Value Date Recorded Sex Assigned at Not on file 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 Gender Identity Not on file Sexual Orientation Not on file documented as of this encounter Plan of Treatment Not on file documented as of this encounter Procedures Procedure Name Priority Date/Time Associated Diagnosis Comments DERMATOPATHOLOGY Routine 03/26/2024 10:1 4 AM CDT documented in this encounter Results * DERMATOPATHOLOGY (03/26/2024 10:14 AM CDT) Case Report Dermatopathology Report Case: [id number] Authorizing Provider: Karis James MD Collected: 03/26/2024 10:14 AM Ordering Location: [facility] - Received: 03/26/2024 04:25 PM DermPath Lab Pathologist: Fide Rizzo MD Specimen: Skin, back 11:44 AM CDT DERMATOPATHOLOGY LABORATORY Final Diagnosis Specimen A. SKIN, back: GRANULOMATOUS DERMATITIS CONSISTENT WITH A RUPTURED CYST OR HAIR FOLLICLE (L72.0) 11:44 AM CDT DERMATOPATHOLOGY LABORATORY Clinical History R/o BCC; pink papule 11:44 AM CDT DERMATOPATHOLOGY LABORATORY Gross Description Specimen A: Received is one formalin filled container labeled with the patient's name and designated back. The specimen consists of a shave biopsy measuring 4x4x1 mm. Jar 0. 11:44 AM CDT DERMATOPATHOLOGY LABORATORY Microscopic Description Specimen A. SKIN, back: Neutrophils, histiocytes, and multinucleated giant cells are present within the dermis. 11:44 AM CDT DERMATOPATHOLOGY LABORATORY Disclaimer An external and internal positive and negative controls are appropriate for the histochemical, immunohistochemical and immunofluorescence stain(s) in this case (if any), except where stated explicitly. The performance characteristics of the stain(s) cited in this report were developed and its performance characteristic determined by the Dermatopathology Laboratory at [facility], directed by Dr. Shereen Awan. These tests need not be, and therefore are not, approved by the [place] Food and Drug Administration. The tests are used for clinical purposes. Billing Codes Specimen Charges Stain Charges 65446 1 11:44 AM CDT DERMATOPATHOLOGY LABORATORY Embedded Images 11:44 AM CDT DERMATOPATHOLOGY LABORATORY Pathology/Cytolo gy TISSUE SPECIMEN FROM SKIN / Unknown 03/26/2024 10:14 AM CDT 03/26/2024 4:25 PM CDT Karis James MD LAB - PATHOLOGY/CYTOLOGY ORD ERABLES Final Result DERMATOPATHOLOGY LABORATORY [facility] - Department of Dermatology [address], [address] [phone] documented in this encounter Visit Diagnoses Not on filedocumented in this encounter Care Teams Public Health Informatician Relationship Specialty Start Date End Date Jc Ascencio MD [address] [place] [phone] PCP - General 01/09/14 documented as of this encounter
--- OUTSIDE RECORDS SUMMARY | 2025-01-09 08:02 | XMS_ITS | Clinical Summary ---
Author Organization [facility] Address [address] [place] [address] Care Team Providers Care Erp Developer Name Role Phone Jc Ascencio MD Primary Care Provider +1- [phone] Source Comments [facility],non-[facility] Affiliates and Associated Physician Practices is amultiple site organization consisting of ambulatory clinics and hospital sitesin [place], [place], [place] and [place]. This disclosure is being madepursuant to the Care Everywhere program and may not contain all information available regarding this patient. 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 Gender Identity Not on file Sexual Orientation Not on file Last Filed Vital Signs Vital Sign Reading Time Taken Comments Blood Pressure 154/82 01/21/2016 9:07 AM CDT Pulse 74 01/21/2016 9:07 AM CDT Temperature 36.5 C (97.7 F) 01/21/2016 9:07 AM CDT Respiratory Rate - - Oxygen Saturation 95% 01/09/2014 9:13 AM CDT Inhaled Oxygen Concentration - - Weight 86.2 kg (190 lb) 01/21/2016 9:07 AM CDT Height 175.3 cm (5' 9 ) 01/21/2016 9:07 AM CDT Body Mass Index 28.06 01/21/2016 9:07 AM CDT Plan of Treatment Health Maintenance Due Date Last Done Comments COLOGUARD (AGES 45-75) - COL ON CA SCREENING 1949 COLON MONITORING 1949 COLONOSCOPY - COLON CA SCREENING 1949 CT COLONOGRAPHY - COLON CA SCREENING 1950 Colorectal Cancer Screening 1949 FIT - COLON CA SCREENING 1949 FLEX SIG - COLON CA SCREENING 1949 LIPID TESTING 1949 MEDICARE AWV 12 MONTHS 1949 HEPATITIS C SCREENING 01/23/1967 DTAP/TDAP/TD VACCINES (1 - Tdap) 01/28/1968 PNEUMOCOCCAL VACCINE 50+ (1 of 1 - PCV) 1999 ZOSTER VACCINE (1 of 2) 1999 Respiratory Syncytial Virus (RSV) Vaccine Pt: or over 60 yrs (1 - 1-dose 75+ series) 01/28/2024 COVID-19 VACCINE (1 - 2023-2 5 season) 2024 DEPRESSION SCREENING 08/29/2024 INFLUENZA VACCINE (Season Ended) 2025 HEPATITIS B VACCINE Aged Out No longe r eligible based on patient's age to complete this topic HIB VACCINE Aged Out No longer eligi ble based on patient's age to complete this topic HPV VACCINE Aged Out No longer eligi ble based on patient's age to complete this topic MENINGOCOCCAL (Group B) VACC INE SHARED DECISION-MAKING Aged Out No longer eligibl e based on patient's age to complete this topic MENINGOCOCCAL GROUPS A/C/Y/W VACCINE Aged Out No longer eligible b ased on patient's age to complete this topic Insurance MEDICARE MED[employer]ARE [employer] Care Teams Erp Developer Relationship Specialty Start Date End Date Jc Ascencio MD [address] [place] [phone] PCP - General 01/09/14
--- OUTSIDE RECORDS SUMMARY | 2025-01-09 08:02 | XMS_ITS | Encounter Summary ---
Author Organization [facility] Address [address] [facility] [place] [address] Care Team Providers Care Phd Internship Name Role Phone Jc Ascencio MD Primary Care Provider +1- [phone] Encounter Details Date Type Department Care Team (Late st Contact Info) Description 02/08/2020 Lab Requisition [facility] DermPath Lab [address] 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 Gender Identity Not on file Sexual Orientation Not on file documented as of this encounter Plan of Treatment Not on file documented as of this encounter Procedures Procedure Name Priority Date/Time Associated Diagnosis Comments DERMATOPATHOLOGY Routine 02/07/2020 12:0 0 AM CDT documented in this encounter Results * DERMATOPATHOLOGY (02/07/2020 12:00 AM CDT) Case Report Dermatopathology Report Case: [id number] Authorizing Provider: Karis James MD Collected: 02/07/2020 12:00 AM Ordering Location: [facility] DermPath Lab Received: 02/08/2020 09:18 AM Pathologist: Chetna Schilling MD Specimen: Skin, left back 0 2:53 PM CDT DERMATOPATHOLOGY LABORATORY Final [...] by the Dermatopathology Laboratory at [facility], directed by Dr. Shereen Awan. These tests need not be, and therefore are not, approved by the [place] Food and Drug Administration. The tests are used for clinical purposes. Billing Codes Specimen Charges Stain Charges 47152 1 0 2:53 PM CDT DERMATOPATHOLOGY LABORATORY Embedded Images 0 2:53 PM CDT DERMATOPATHOLOGY LABORATORY Pathology/Cytolog y TISSUE SPECIMEN FROM SKIN / Unknown 02/07/2020 02/08/2020 9:18 AM CDT us Karis James MD LAB - PATHOLOGY/CYTOLOGY ORD ERABLES Final Result DERMATOPATHOLOGY LABORATORY [facility] - Department of Dermatology [facility] [address], [facility] [phone] documented in this encounter Visit Diagnoses Not on filedocumented in this encounter Care Teams Phd Internship Relationship Specialty Start Date End Date Jc Ascencio MD [facility] [place] [address] PCP - General 01/09/14 documented as of this encounter
--- OUTSIDE RECORDS SUMMARY | 2025-01-09 08:02 | XMS_ITS | Encounter Summary ---
Author Organization [facility] Address [address] [facility] [place] [address] Care Team Providers Care Cigar Roller Name Role Phone Jc Ascencio MD Primary Care Provider +1- [phone] Encounter Details Date Type Department Care Team (Late st Contact Info) Description 08/10/2023 Lab Requisition [facility] - DermPath Lab [address] [facility], [place] [phone] Karis James MD [address] [facility] 3 [place] [address] Social History Tobacco Use Types Packs/Day Years Used Date Smoking Tobacco: Former Smokeless Tobacco: Never Alcohol Use Standard Drinks/Week Comments Yes 0 (1 standard drink = 0.6 oz pur e alcohol) Sex and Gender Information Value Date Recorded Sex Assigned at Not on file Legal Sex Male 5:58 PM COATING MIXER Gender Identity Not on file Sexual Orientation Not on file documented as of this encounter Plan of Treatment Not on file documented as of this encounter Procedures Procedure Name Priority Date/Time Associated Diagnosis Comments DERMATOPATHOLOGY Routine 08/10/2023 11:0 7 AM COATING MIXER documented in this encounter Results * DERMATOPATHOLOGY (08/10/2023 11:07 AM COATING MIXER) Case Report Dermatopathology Report Case: [id number] Authorizing Provider: Karis James MD Collected: 08/10/2023 11:07 AM Ordering Location: [facility] DermPath Lab Received: 08/11/2023 12:52 PM Pathologist: Jessika Roldan MD Specimens: A) - Skin, crown B) - Skin, left eyelid 3 3:35 PM [facility]MAT[facility] Final Diagnosis Specimen A. 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 SKIN, left eyelid: SUBACUTE SPONGIOTIC DERMATITIS (L30.8) EPIDERMAL NECROSIS SUGGESTIVE OF EXCORIATION (L98.499) (see microscopic description and comment) 3 3:35 PM [facility]MAT[facility] Clinical History A: [place] Papule SCC B: ACD/ Drug / Immunobullous 3:35 PM [facility]ERMAT[facility] Gross Description Specimen A: Received [...] 3x2x3 mm. Jar 0. 3 3:35 PM [facility]MAT[facility] Microscopic Description Specimen A. SKIN, [...] given to submitting tissue for direct immunofluorescence. 3:35 PM [facility] Disclaimer An external and internal positive and negative controls are appropriate for the histochemical, immunohistochemical and immunofluorescence stain(s) in this case (if any), except where stated explicitly. The performance characteristics of the stain(s) cited in this report were developed and its performance characteristic determined by the Dermatopathology Laboratory at [facility], directed by Dr. Shreeen Awan. These tests need not be, and therefore are not, approved by the [place] Food and Drug Administration. The tests are used for clinical purposes. Billing Codes Specimen Charges Stain Charges 19988 59126 1 1 90542 93792 1 1 3 3:35 PM COATING MIXER DERMATOPATHOLOGY LABORATORY Embedded Images 3 3:35 PM COATING MIXER DERMATOPATHOLOGY LABORATORY Pathology/Cytology TISSUE SPECIMEN FROM SKIN / Unknown 08/10/2023 11:07 AM COATING MIXER 08/11/2023 12:52 PM COATING MIXER Miscellaneous samples (specimen) TISSUE SPECIMEN FROM SKIN / Unknown 08/10/2023 11:07 AM COATING MIXER 08/11/2023 12:52 PM COATING MIXER Karis James MD LAB - PATHOLOGY/CYTOLOGY ORD ERABLES Final Result DERMATOPATHOLOGY LABORATORY [facility] - Department of Dermatology [facility] [address] [place] [address], [address] [phone] documented in this encounter Visit Diagnoses Not on filedocumented in this encounter Care Teams Cigar Roller Relationship Specialty Start Date End Date Jc Ascencio MD [address] [place] [phone] PCP - General 01/09/14 documented as of this encounter
[2025-01-09 20:10] LABS: Alanine Aminotransferase 32 U/L (6-50); Albumin Level 4.5 g/dL (3.5-5.1); Alkaline Phosphatase 63 U/L (38-126); Anion Gap 7 mmol/L (4-12); Aspartate Amino Transferase 51 U/L (17-59); Bilirubin,Total 1.5 mg/dL (0.2-1.3); Blood Urea Nitrogen 26 mg/dL (9-20); Calcium 9.6 mg/dL (8.4-10.2); Carbon Dioxide 29 mmol/L (22-30); Chloride 100 mmol/L (98-107); Cholesterol 213 mg/dL (0-200); Estimated Glomerular Filt Rate > 60; Glucose 100 mg/dL (65-110); HDL Direct 54 mg/dL; Potassium 4.7 mmol/L (3.4-5.0); Sodium 136 mmol/L (137-145); Triglycerides 216 mg/dL (<150)
[2025-01-09 20:22] LABS: LDL Cholesterol Direct 92 mg/dL
== END 2025-01-09 07:59 | disposition home or self-care (01) ==
LOC: ANHGOSHLAB 07:59
PROVIDERS: PCP Family Medicine; Visit Provider Nurse Practitioner Family
DX: E78.2 Mixed hyperlipidemia (principal); I10 Essential (primary) hypertension; R73.01 Impaired fasting glucose
CPT/HCPCS: 36415; 80053; 80061; 83036

== ENCOUNTER 2025-01-16 09:32 | Outpatient (CLI) | payer MEDICARE, OTHER, SELFPAY ==
--- OUTSIDE RECORDS SUMMARY | 2025-01-16 10:12 | XMS_ITS | Encounter Summary ---
Author Organization [facility] Address [address] [place] [address] Care Team Providers Care City Manager Name Role Phone Jc Ascencio MD Primary Care Provider +1- [phone] Encounter Details Date Type Department Care Team (Late st Contact Info) Description 03/26/2024 Lab Requisition [facility] - DermPath Lab [address] [facility] [place] [phone] Karis James MD [address] [facility] 3 [place] [address] Social History Tobacco Use Types Packs/Day Years Used Date Smoking Tobacco: Former Smokeless Tobacco: Never Alcohol Use Standard Drinks/Week Comments Yes 0 (1 standard drink = 0.6 oz pur e alcohol) Sex and Gender Information Value Date Recorded Sex Assigned at Not on file 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 Gender Identity Not on file Sexual Orientation Not on file documented as of this encounter Plan of Treatment Not on file documented as of this encounter Procedures Procedure Name Priority Date/Time Associated Diagnosis Comments DERMATOPATHOLOGY Routine 03/26/2024 10:1 4 AM CDT documented in this encounter Results * DERMATOPATHOLOGY (03/26/2024 10:14 AM CDT) Case Report Dermatopathology Report Case: [id number] Authorizing Provider: Karis James MD Collected: 03/26/2024 10:14 AM Ordering Location: [facility] - Received: 03/26/2024 04:25 PM DermPath Lab Pathologist: Fide Rizzo MD Specimen: Skin, back 11:44 AM CDT DERMATOPATHOLOGY LABORATORY Final Diagnosis Specimen A. SKIN, back: GRANULOMATOUS DERMATITIS CONSISTENT WITH A RUPTURED CYST OR HAIR FOLLICLE (L72.0) 11:44 AM CDT DERMATOPATHOLOGY LABORATORY at 1144 CDT Clinical History R/o BCC; pink papule 11:44 [...] characteristic determined by the Dermatopathology Laboratory at [facility], directed by Dr. Shereen Awan. These tests need not be, and therefore are not, approved by the [place] Food and Drug Administration. The tests are used for clinical purposes. Billing Codes Specimen Charges Stain Charges 11922 1 11:44 AM CDT DERMATOPATHOLOGY LABORATORY Embedded Images 11:44 AM CDT DERMATOPATHOLOGY LABORATORY Pathology/Cytolo gy TISSUE SPECIMEN FROM SKIN / Unknown 03/26/2024 10:14 AM CDT 03/26/2024 4:25 PM CDT Karis James MD LAB - PATHOLOGY/CYTOLOGY ORD ERABLES Final Result DERMATOPATHOLOGY LABORATORY [facility] - Department of Dermatology [address], [address] [phone] documented in this encounter Visit Diagnoses Not on filedocumented in this encounter Care Teams City Manager Relationship Specialty Start Date End Date Jc Ascencio MD [address] [place] [phone] PCP - General 01/09/14 documented as of this encounter
--- OUTSIDE RECORDS SUMMARY | 2025-01-16 10:12 | XMS_ITS | Encounter Summary ---
Author Organization [facility] Address [address] [place] [address] Care Team Providers Care Lead Quality Technician Name Role Phone Jc Ascencio MD Primary Care Provider +1- [phone] Encounter Details Date Type Department Care Team (Late st Contact Info) Description 11/08/2023 Lab Requisition [facility] - DermPath Lab [address] [facility], [place] [address] Karis James MD [address] 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 Gender Identity Not on file Sexual Orientation Not on file documented as of this encounter Plan of Treatment Not on file documented as of this encounter Procedures Procedure Name Priority Date/Time Associated Diagnosis Comments DERMATOPATHOLOGY Routine 11/08/2023 9:32 AM CDT documented in this encounter Results * DERMATOPATHOLOGY (11/08/2023 9:32 AM CDT) Case Report Dermatopathology Report Case: [id number] Authorizing Provider: Karis James MD Collected: 11/08/2023 09:32 AM Ordering Location: [facility] - Received: 11/09/2023 06:36 AM DermPath Lab Pathologist: Simone Awan MD Specimen: Skin, crown anterior 4 5:29 PM CDT DERMATOPATHOLOGY LABORATORY Final Diagnosis Specimen A. SKIN, crown anterior: HYPERPLASTIC (HYPERTROPHIC) ACTINIC KERATOSIS (L57.0) 4 5:29 PM CDT DERMATOPATHOLOGY LABORATORY at 1728 CDT Clinical History Tender [place] Papula [place] vs SCC 4 5:29 PM [...] characteristic determined by the Dermatopathology Laboratory at [facility], directed by Dr. Shereen Awan. These tests need not be, and therefore are not, approved by the [place] Food and Drug Administration. The tests are used for clinical purposes. Billing Codes Specimen Charges Stain Charges 67370 1 4 5:29 PM CDT DERMATOPATHOLOGY LABORATORY Embedded Images 4 5:29 PM CDT DERMATOPATHOLOGY LABORATORY Pathology/Cytolo gy TISSUE SPECIMEN FROM SKIN / Unknown 11/08/2023 9:32 AM CDT 11/09/2023 6:36 AM CDT us Karis James MD LAB - PATHOLOGY/CYTOLOGY ORD ERABLES Final Result DERMATOPATHOLOGY LABORATORY [facility] - Department of Dermatology [address], [address] [phone] documented in this encounter Visit Diagnoses Not on filedocumented in this encounter Care Teams Lead Quality Technician Relationship Specialty Start Date End Date Jc Ascencio MD [address] [place] [phone] PCP - General 01/09/14 documented as of this encounter
--- OUTSIDE RECORDS SUMMARY | 2025-01-16 10:12 | XMS_ITS | Clinical Summary ---
Author Organization [facility] Address [address] [facility] [place] [address] Care Team Providers Care Bus Boy Name Role Phone Jc Ascencio MD Primary Care Provider +1- [phone] Source Comments [facility] Affiliates and Associated Physician Practices is amultiple site organization consisting of ambulatory clinics and hospital sitesin [place], [place], [place] and [place]. This disclosure is being madepursuant to the Care Everywhere program and may not contain all information available regarding this patient. 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
--- OUTSIDE RECORDS SUMMARY | 2025-01-16 10:12 | XMS_ITS | Encounter Summary ---
Author Organization [facility] Health Address [address] [place] [address] Care Team Providers Care Indian Nanny Name Role Phone Jc Ascencio MD Primary Care Provider +1- [phone] Encounter Details Date Type Department Care Team (Late st Contact Info) Description 08/10/2023 Lab Requisition [facility] - DermPath Lab [address] [facility], [place] [phone] Karis James MD [address] [facility] [place] 3 [place] [address] Social History Tobacco Use Types Packs/Day Years Used Date Smoking Tobacco: Former Smokeless Tobacco: Never Alcohol Use Standard Drinks/Week Comments Yes 0 (1 standard drink = 0.6 oz pur e alcohol) Sex and Gender Information Value Date Recorded Sex Assigned at Not on file Legal Sex Male 5:58 PM PRODUCT INSPECTION SUPERVISOR Gender Identity Not on file Sexual Orientation Not on file documented as of this encounter Plan of Treatment Not on file documented as of this encounter Procedures Procedure Name Priority Date/Time Associated Diagnosis Comments DERMATOPATHOLOGY Routine 08/10/2023 11:0 7 AM PRODUCT INSPECTION SUPERVISOR documented in this encounter Results * DERMATOPATHOLOGY (08/10/2023 11:07 AM PRODUCT INSPECTION SUPERVISOR) Case Report Dermatopathology Report Case: [id number] Authorizing Provider: Karis James MD Collected: 08/10/2023 11:07 AM Ordering Location: [facility] DermPath Lab Received: 08/11/2023 12:52 PM Pathologist: Jessika Roldan MD Specimens: A) - Skin, crown B) - Skin, left eyelid 3 3:35 PM [facility] DERMATOPATHOLOGY LABORATORY Final Diagnosis Specimen A. 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 SKIN, left eyelid: SUBACUTE SPONGIOTIC DERMATITIS (L30.8) EPIDERMAL NECROSIS SUGGESTIVE OF EXCORIATION (L98.499) (see microscopic description and comment) 3 3:35 PM [facility] DERMATOPATHOLOGY LABORATORY at 1535 PRODUCT INSPECTION SUPERVISOR Clinical History A: Rail Road Flat Papule SCC B: ACD/ Drug / Immunobullous 3:35 PM [facility] DERMATOPATHOLOGY LABORATORY Gross Description Specimen A: Received [...] 3x2x3 mm. Jar 0. 3 3:35 PM [facility] DERMATOPATHOLOGY LABORATORY Microscopic Description Specimen A. SKIN, [...] submitting tissue for direct immunofluorescence. 3:35 PM [facility] DERMATOPATHOLOGY LABORATORY Disclaimer An external and internal positive and negative controls are appropriate for the histochemical, immunohistochemical and immunofluorescence stain(s) in this case (if any), except where stated explicitly. The performance characteristics of the stain(s) cited in this report were developed and its performance characteristic determined by the Dermatopathology Laboratory at [facility], directed by Dr. Shereen Awan. These tests need not be, and therefore are not, approved by the [place] Food and Drug Administration. The tests are used for clinical purposes. Billing Codes Specimen Charges Stain Charges 39192 56547 1 1 37774 59767 1 1 3 3:35 PM PRODUCT INSPECTION SUPERVISOR DERMATOPATHOLOGY LABORATORY Embedded Images 3 3:35 PM PRODUCT INSPECTION SUPERVISOR DERMATOPATHOLOGY LABORATORY Pathology/Cytology TISSUE SPECIMEN FROM SKIN / Unknown 08/10/2023 11:07 AM PRODUCT INSPECTION SUPERVISOR 08/11/2023 12:52 PM PRODUCT INSPECTION SUPERVISOR Miscellaneous samples (specimen) TISSUE SPECIMEN FROM SKIN / Unknown 08/10/2023 11:07 AM PRODUCT INSPECTION SUPERVISOR 08/11/2023 12:52 PM PRODUCT INSPECTION SUPERVISOR Karis James MD LAB - PATHOLOGY/CYTOLOGY ORD ERABLES Final Result DERMATOPATHOLOGY LABORATORY [facility] - Department of Dermatology [facility] Specialized Medicine [address] [place] [address], [address] [phone] documented in this encounter Visit Diagnoses Not on filedocumented in this encounter Care Teams Indian Nanny Relationship Specialty Start Date End Date Jc Ascencio MD [address] [place] [phone] PCP - General 01/09/14 documented as of this encounter
--- OUTSIDE RECORDS SUMMARY | 2025-01-16 10:12 | XMS_ITS | Encounter Summary ---
Author Organization [facility] Health Address [address] [facility] [place] [address] Care Team Providers Care Information Resources Manager Name Role Phone Jc Ascencio MD Primary Care Provider +1- [phone] Encounter Details Date Type Department Care Team (Late st Contact Info) Description 01/11/2019 Lab Requisition [facility] Care DermPath Lab [address] [facility], [place] [phone] Karis James MD [address] [facility] 3 [place] [address] Social History Tobacco Use Types Packs/Day Years Used Date Smoking Tobacco: Former Smokeless Tobacco: Never Alcohol Use Standard Drinks/Week Comments Yes 0 (1 standard drink = 0.6 oz pur e alcohol) Sex and Gender Information Value Date Recorded Sex Assigned at Not on file 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 Gender Identity Not on file Sexual Orientation Not on file documented as of this encounter Plan of Treatment Not on file documented as of this encounter Procedures Procedure Name Priority Date/Time Associated Diagnosis Comments DERMATOPATHOLOGY Routine 01/10/2019 12:0 0 AM CDT documented in this encounter Results * DERMATOPATHOLOGY (01/10/2019 12:00 AM CDT) Case Report Dermatopathology Report Case: [id number] Authorizing Provider: Karis James MD Collected: 01/10/2019 12:00 AM Pathologist: Simone Awan MD Received: 01/11/2019 06:18 AM Specimen: Skin, left lat cheek 9 2:30 PM CDT DERMATOPATHOLOGY LABORATORY Final Diagnosis Specimen A. SKIN, left lat cheek: BASAL CELL CARCINOMA, INFILTRATIVE PATTERN (C44.319) 9 2:30 PM CDT DERMATOPATHOLOGY LABORATORY at 1430 CDT Clinical History Pearly papule adj to prior [...] characteristic determined by the Dermatopathology Laboratory at [facility], directed by Dr. Shereen Awan. These tests need not be, and therefore are not, approved by the [place] Food and Drug Administration. The tests are used for clinical purposes. Billing Codes Specimen Charges Stain Charges 86682 1 9 2:30 PM CDT DERMATOPATHOLOGY LABORATORY Embedded Images 2:30 PM CDT DERMATOPATHOLOGY LABORATORY Pathology/Cytolog y TISSUE SPECIMEN FROM SKIN / Unknown 01/10/2019 01/11/2019 6:18 AM CDT us Karis James MD LAB - PATHOLOGY/CYTOLOGY ORD ERABLES Final Result DERMATOPATHOLOGY LABORATORY [facility] - Department of Dermatology [address] [place] [address], 5th [place] [address], [facility] [phone] documented in this encounter Visit Diagnoses Not on filedocumented in this encounter Care Teams Information Resources Manager Relationship Specialty Start Date End Date Jc Ascencio MD [address] [place] [phone] PCP - General 01/09/14 documented as of this encounter
--- OUTSIDE RECORDS SUMMARY | 2025-01-16 10:12 | XMS_ITS | Encounter Summary ---
Author Organization [facility] Address [address] [place] [address] Care Team Providers Care Destination Specialist Name Role Phone Jc Ascencio MD Primary Care Provider +1- [phone] Encounter Details Date Type Department Care Team (Late st Contact Info) Description 02/08/2020 Lab Requisition [facility] DermPath Lab [address] [facility], [place] [phone] Karis James MD [address] [facility] 3 [place] [address] Social History Tobacco Use Types Packs/Day Years Used Date Smoking Tobacco: Former Smokeless Tobacco: Never Alcohol Use Standard Drinks/Week Comments Yes 0 (1 standard drink = 0.6 oz pur e alcohol) Sex and Gender Information Value Date Recorded Sex Assigned at Not on file 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 Gender Identity Not on file Sexual Orientation Not on file documented as of this encounter Plan of Treatment Not on file documented as of this encounter Procedures Procedure Name Priority Date/Time Associated Diagnosis Comments DERMATOPATHOLOGY Routine 02/07/2020 12:0 0 AM CDT documented in this encounter Results * DERMATOPATHOLOGY (02/07/2020 12:00 AM CDT) Case Report Dermatopathology Report Case: [id number] Authorizing Provider: Karis James MD Collected: 02/07/2020 12:00 AM Ordering Location: [facility] DermPath Lab Received: 02/08/2020 09:18 AM Pathologist: Chetna Schilling MD Specimen: Skin, left back 0 2:53 PM CDT DERMATOPATHOLOGY LABORATORY Final Diagnosis Specimen A. SKIN, left back: LICHEN PLANUS-LIKE KERATOSIS (BENIGN LICHENOID KERATOSIS) (L82.1) 0 2:53 PM CDT DERMATOPATHOLOGY LABORATORY at 1453 CDT Clinical History R/O BCC, nevus, MM 0 [...] characteristic determined by the Dermatopathology Laboratory at [facility], directed by Dr. Shereen Awan. These tests need not be, and therefore are not, approved by the [place] Food and Drug Administration. The tests are used for clinical purposes. Billing Codes Specimen Charges Stain Charges 97524 1 0 2:53 PM CDT DERMATOPATHOLOGY LABORATORY Embedded Images 0 2:53 PM CDT DERMATOPATHOLOGY LABORATORY Pathology/Cytolog y TISSUE SPECIMEN FROM SKIN / Unknown 02/07/2020 02/08/2020 9:18 AM CDT us Karis James MD LAB - PATHOLOGY/CYTOLOGY ORD ERABLES Final Result DERMATOPATHOLOGY LABORATORY [facility] - Department of Dermatology [facility] [place] [address], [facility] [phone] documented in this encounter Visit Diagnoses Not on filedocumented in this encounter Care Teams Destination Specialist Relationship Specialty Start Date End Date Jc Ascencio MD [facility] [place] [phone] PCP - General 01/09/14 documented as of this encounter
[2025-01-16 14:06] LABS: Prostate Specific Antigen < 0.1 ng/mL (< OR = 4.0)
== END 2025-01-16 09:33 | disposition home or self-care (01) ==
PROVIDERS: PCP Family Medicine; Visit Provider Family Medicine
DX: Z12.5 Encounter for screening for malignant neoplasm of prostate (principal); Z85.46 Personal history of malignant neoplasm of prostate
CPT/HCPCS: 36415; 84153; G0103

== ENCOUNTER 2025-07-24 07:55 | Outpatient (CLI) | payer MEDICARE, OTHER, SELFPAY ==
--- OUTSIDE RECORDS SUMMARY | 2025-07-24 07:59 | XMS_ITS | Encounter Summary ---
Author Organization [facility] Health Address [address] [facility] [place] [address] Care Team Providers Care Record Press Tender Name Role Phone Jc Ascencio MD Primary Care Provider +1- [phone] Encounter Details Date Type Department Care Team (Late st Contact Info) Description 01/11/2019 Lab Requisition [facility] Care DermPath Lab [address] [facility], [place] [phone] Karis James MD [address] [facility] 3 [place] [address] Social History Tobacco Use Types Packs/Day Years Used Date Smoking Tobacco: Former Smokeless Tobacco: Never Alcohol Use Standard Drinks/Week Comments Yes 0 (1 standard drink = 0.6 oz pur e alcohol) Sex and Gender Information Value Date Recorded Sex Assigned at Not on file 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 Shereen Awan. These tests need not be, and therefore are not, approved by the [place] Food and Drug Administration. The tests are used for clinical purposes. Billing Codes Specimen Charges Stain Charges 73539 1 9 2:30 PM CDT DERMATOPATHOLOGY LABORATORY Embedded Images 2:30 PM CDT DERMATOPATHOLOGY LABORATORY Pathology/Cytolog y TISSUE SPECIMEN FROM SKIN / Unknown 01/10/2019 01/11/2019 6:18 AM CDT us Karis James MD LAB - PATHOLOGY/CYTOLOGY ORD ERABLES Final Result DERMATOPATHOLOGY LABORATORY [facility] - Department of Dermatology [address] [place] [address], 5th [place] [address], [facility] [phone] documented in this encounter Visit Diagnoses Not on filedocumented in this encounter Care Teams Record Press Tender Relationship Specialty Start Date End Date Jc Ascencio MD [address] [place] [phone] PCP - General 01/09/14 documented as of this encounter
--- OUTSIDE RECORDS SUMMARY | 2025-07-24 07:59 | XMS_ITS | Patient Health Record ---
Author Organization [facility] Address [address] [facility] [place] [address] Care Team Providers Care Clinical Education Consultant Name Role Phone JHONNY STALEY Unavailable [phone] Reason For Referral No Information Plan Of Treatment No Information Insurance Providers Payer Name Payer Address Payer Phone Subscriber Number Group Number Insured Name Patient Relationship to Insured Coverage Start Date Coverage End Date [facility] [address] [place] [id number] Zurdo Barriga Self - patient is the insured 9
--- OUTSIDE RECORDS SUMMARY | 2025-07-24 07:59 | XMS_ITS | Clinical Summary ---
Author Organization [facility] Address [address] [facility] [place] [address] Care Team Providers Care Ornamental Metal Erector Apprentice Name Role Phone Jc Ascencio MD Primary Care Provider +1- [phone] Source Comments [facility],non-owned Affiliates and Associated Physician Practices is amultiple site organization consisting of ambulatory clinics and hospital sitesin [place], [place], [place] and [place]. This disclosure is being madepursuant to the Care Everywhere program and may not contain all information available regarding this patient. 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 Encounters Date Type Department Care Team Description 05/08/2025 Lab Requisition [facility] - DermPath Lab [address] [facility] [place] [address] Karis James MD Neoplasm of uncertain behavior of skin from Last 3 Months Social History Tobacco Use Types Packs/Day Years Used Date Smoking Tobacco: Former Smokeless Tobacco: Never Alcohol Use Standard Drinks/Week Comments Yes 0 (1 standard drink = 0.6 oz pur e alcohol) Sex and Gender Information Value Date Recorded Sex Assigned at Not on file 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 Gender Identity Not on file Sexual Orientation [...] 9:07 AM CDT Height 175.3 cm (5' 9) 01/21/2016 9:07 AM CDT Body Mass Index 28.06 01/21/2016 9:07 AM CDT Plan of Treatment Health Maintenance Due Date Last Done Comments MEDICARE AWV 12 MONTHS 1950 HEPATITIS C SCREENING 01/23/1967 DTAP/TDAP/TD VACCINES (1 - Tdap) 01/28/1968 PNEUMOCOCCAL VACCINE 50+ (1 of 1 - PCV) 1999 ZOSTER VACCINE (1 of 2) 1999 Respiratory Syncytial Virus (RSV) Vaccine Pt: or over 60 yrs (1 - 1-dose 75+ series) 01/28/2024 DEPRESSION SCREENING 08/29/2024 COVID-19 VACCINE ( - 2024-2 6 season) 2025 INFLUENZA VACCINE (#1) 2025 HEPATITIS B VACCINE Aged Out No [...] on patient's age to complete this topic Procedures Procedure Name Priority Date/Time Associated Diagnosis Comments DERMATOPATHOLOGY Routine 05/08/2025 8:15 AM CDT Neoplasm of uncertain behavior of skin from Last 3 Months Results * DERMATOPATHOLOGY (05/08/2025 8:15 AM CDT) Case Report Dermatopathology Report Case: [id number] Authorizing Provider: Karis James MD Collected: 05/08/2025 08:15 AM Ordering Location: [facility] [place] [facility] - Received: 05/08/2025 02:12 PM DermPath Lab Pathologist: Jessika Roldan MD Specimen: Skin, scalp 1:08 PM CDT DERMATOPATHOLOGY LABORATORY Final Diagnosis Specimen A. 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 The specimen consists of a shave biopsy measuring 11x7x1 mm. Jar 0. 1:08 PM CDT DERMATOPATHOLOGY LABORATORY Microscopic Description Specimen A. SKIN, scalp: The epidermis shows parakeratosis, full thickness disorderly maturation of keratinocytes, mitoses at different levels, and dyskeratotic cells. 1:08 PM CDT DERMATOPATHOLOGY LABORATORY Disclaimer An external and internal positive and negative controls are appropriate for the histochemical, immunohistochemical and immunofluorescence stain(s) in this case (if any), except where stated explicitly. The performance characteristics of the stain(s) cited in this report were developed and its performance characteristic determined by the Dermatopathology Laboratory at [facility], directed by Dr. Shereen Awan. These tests need not be, and therefore are not, approved by the [place] Food and Drug Administration. The tests are used for clinical purposes. Billing Codes Specimen Charges Stain Charges 57026 1 1:08 PM CDT DERMATOPATHOLOGY LABORATORY Embedded Images 1:08 PM CDT DERMATOPATHOLOGY LABORATORY Pathology/Cytolo gy TISSUE SPECIMEN FROM SKIN / Unknown 05/08/2025 8:15 AM CDT 05/08/2025 2:12 PM CDT us Karis James MD LAB - PATHOLOGY/CYTOLOGY ORD ERABLES Final Result DERMATOPATHOLOGY LABORATORY [facility] - Department of Dermatology [facility] Medicine [address] [place] [address], 3rd [place] [address], [facility] [phone] from Last 3 Months Insurance MEDICARE MEDICARE [employer] Care Teams Ornamental Metal Erector Apprentice Relationship Specialty Start Date End Date Jc Ascencio MD [address] [place] [phone] PCP - General 01/09/14
--- OUTSIDE RECORDS SUMMARY | 2025-07-24 07:59 | XMS_ITS | Encounter Summary ---
Author Organization [facility] Address [address] [place] [address] Care Team Providers Care Director Operations Broadcast Name Role Phone Jc Ascencio MD Primary Care Provider +1- [phone] Encounter Details Date Type Department Care Team (Late st Contact Info) Description 11/08/2023 Lab Requisition [facility] - DermPath Lab [address] [facility], [place] [phone] Karis James MD [address] [facility] 3 [place] [address] Social History Tobacco Use Types Packs/Day Years Used Date Smoking Tobacco: Former Smokeless Tobacco: Never Alcohol Use Standard Drinks/Week Comments Yes 0 (1 standard drink = 0.6 oz pur e alcohol) Sex and Gender Information Value Date Recorded Sex Assigned at Not on file 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 Gender Identity Not on file Sexual Orientation Not on file documented as of this encounter Plan of Treatment Not on file documented as of this encounter Procedures Procedure Name Priority Date/Time Associated Diagnosis Comments DERMATOPATHOLOGY Routine 11/08/2023 9:32 AM CDT documented in this encounter Results * DERMATOPATHOLOGY (11/08/2023 9:32 AM CDT) Case Report Dermatopathology Report Case: [id number] Authorizing Provider: Karis James MD Collected: 11/08/2023 09:32 AM Ordering Location: [facility] - Received: 11/09/2023 06:36 AM DermPath Lab Pathologist: Simone Awan MD Specimen: Skin, crown anterior 4 5:29 PM CDT DERMATOPATHOLOGY LABORATORY Final Diagnosis Specimen A. SKIN, crown anterior: HYPERPLASTIC (HYPERTROPHIC) ACTINIC KERATOSIS (L57.0) 4 5:29 PM CDT DERMATOPATHOLOGY LABORATORY at 1728 CDT Clinical History Tender [place] Papula [place] vs SCC 4 5:29 PM [...] characteristic determined by the Dermatopathology Laboratory at [facility], directed by Dr. Shereen Awan. These tests need not be, and therefore are not, approved by the [place] Food and Drug Administration. The tests are used for clinical purposes. Billing Codes Specimen Charges Stain Charges 30849 1 4 5:29 PM CDT DERMATOPATHOLOGY LABORATORY Embedded Images 4 5:29 PM CDT DERMATOPATHOLOGY LABORATORY Pathology/Cytolo gy TISSUE SPECIMEN FROM SKIN / Unknown 11/08/2023 9:32 AM CDT 11/09/2023 6:36 AM CDT us Karis James MD LAB - PATHOLOGY/CYTOLOGY ORD ERABLES Final Result DERMATOPATHOLOGY LABORATORY [facility] - Department of Dermatology [address], [address] Floor [address] [phone] documented in this encounter Visit Diagnoses Not on filedocumented in this encounter Care Teams Director Operations Broadcast Relationship Specialty Start Date End Date Jc Ascencio MD [address] [place] [phone] PCP - General 01/09/14 documented as of this encounter
--- OUTSIDE RECORDS SUMMARY | 2025-07-24 07:59 | XMS_ITS | Encounter Summary ---
Author Organization [facility] Address [address] [facility] [place] [address] Care Team Providers Care Timber Faller Name Role Phone Jc Ascencio MD Primary Care Provider +1- [phone] Encounter Details Date Type Department Care Team (Late st Contact Info) Description 02/08/2020 Lab Requisition [facility] DermPath Lab [address] 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 Gender Identity Not on file Sexual Orientation Not on file documented as of this encounter Plan of Treatment Not on file documented as of this encounter Procedures Procedure Name Priority Date/Time Associated Diagnosis Comments DERMATOPATHOLOGY Routine 02/07/2020 12:0 0 AM CDT documented in this encounter Results * DERMATOPATHOLOGY (02/07/2020 12:00 AM CDT) Case Report Dermatopathology Report Case: [id number] Authorizing Provider: Karis James MD Collected: 02/07/2020 12:00 AM Ordering Location: [facility] DermPath Lab Received: 02/08/2020 09:18 AM Pathologist: [...] characteristic determined by the Dermatopathology Laboratory at [facility], directed by Dr. Shereen Awan. These tests need not be, and therefore are not, approved by the [place] Food and Drug Administration. The tests are used for clinical purposes. Billing Codes Specimen Charges Stain Charges 42868 1 0 2:53 PM CDT DERMATOPATHOLOGY LABORATORY Embedded Images 0 2:53 PM CDT DERMATOPATHOLOGY LABORATORY Pathology/Cytolog y TISSUE SPECIMEN FROM SKIN / Unknown 02/07/2020 02/08/2020 9:18 AM CDT us Karis James MD LAB - PATHOLOGY/CYTOLOGY ORD ERABLES Final Result DERMATOPATHOLOGY LABORATORY [facility] - Department of Dermatology [facility] [address], [facility] [phone] documented in this encounter Visit Diagnoses Not on filedocumented in this encounter Care Teams Timber Faller Relationship Specialty Start Date End Date Jc Ascencio MD [facility] [place] [phone] PCP - General 01/09/14 documented as of this encounter
--- OUTSIDE RECORDS SUMMARY | 2025-07-24 07:59 | XMS_ITS | Encounter Summary ---
Author Organization [facility] Address [address] [place] [address] Care Team Providers Care Customer Marketing Intern Name Role Phone Jc Ascencio MD Primary Care Provider +1- [phone] Encounter Details Date Type Department Care Team (Late st Contact Info) Description 03/26/2024 Lab Requisition [facility] - DermPath Lab [address] [facility] [address] [place] [phone] Karis James MD [address] [facility] [address] [place] [address] Social History Tobacco Use Types Packs/Day Years Used Date Smoking Tobacco: Former Smokeless Tobacco: Never Alcohol Use Standard Drinks/Week Comments Yes 0 (1 standard drink = 0.6 oz pur e alcohol) Sex and Gender Information Value Date Recorded Sex Assigned at Not on file 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 Gender Identity Not on file Sexual Orientation Not on file documented as of this encounter Plan of Treatment Not on file documented as of this encounter Procedures Procedure Name Priority Date/Time Associated Diagnosis Comments DERMATOPATHOLOGY Routine 03/26/2024 10:1 4 AM CDT documented in this encounter Results * DERMATOPATHOLOGY (03/26/2024 10:14 AM CDT) Case Report Dermatopathology Report Case: [id number] Authorizing Provider: Karis James MD Collected: 03/26/2024 10:14 AM Ordering Location: [facility] - Received: 03/26/2024 04:25 PM [...] characteristic determined by the Dermatopathology Laboratory at [facility], directed by Dr. Shereen Awan. These tests need not be, and therefore are not, approved by the [place] Food and Drug Administration. The tests are used for clinical purposes. Billing Codes Specimen Charges Stain Charges 22191 1 11:44 AM CDT DERMATOPATHOLOGY LABORATORY Embedded Images 11:44 AM CDT DERMATOPATHOLOGY LABORATORY Pathology/Cytolo gy TISSUE SPECIMEN FROM SKIN / Unknown 03/26/2024 10:14 AM CDT 03/26/2024 4:25 PM CDT Karis James MD LAB - PATHOLOGY/CYTOLOGY ORD ERABLES Final Result DERMATOPATHOLOGY LABORATORY [facility] - Department of Dermatology [address], [address] [phone] documented in this encounter Visit Diagnoses Not on filedocumented in this encounter Care Teams Customer Marketing Intern Relationship Specialty Start Date End Date Jc Ascencio MD [address] [place] [phone] PCP - General 01/09/14 documented as of this encounter
--- OUTSIDE RECORDS SUMMARY | 2025-07-24 07:59 | XMS_ITS | Encounter Summary ---
Author Organization [facility] Address [address] [facility] [place] [address] Care Team Providers Care Writer Producer Name Role Phone Jc Ascencio MD Primary Care Provider +1- [phone] Encounter Details Date Type Department Care Team (Late st Contact Info) Description 05/08/2025 Lab Requisition [facility] - DermPath Lab [address] [facility] [place] [phone] Karis James MD [address] [facility] 3 [place] [address] Neoplasm of uncertain behavior of skin Social History Tobacco Use Types Packs/Day Years Used Date Smoking Tobacco: Former Smokeless Tobacco: Never Alcohol Use Standard Drinks/Week Comments Yes 0 (1 standard drink = 0.6 oz pur e alcohol) Sex and Gender Information Value Date Recorded Sex Assigned at Not on file 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 Gender Identity Not on file Sexual Orientation Not on file documented as of this encounter Plan of Treatment Not on file documented as of this encounter Procedures Procedure Name Priority Date/Time Associated Diagnosis Comments DERMATOPATHOLOGY Routine 05/08/2025 8:15 AM CDT Neoplasm of uncertain behavior of skin documented in this encounter Results * DERMATOPATHOLOGY (05/08/2025 8:15 AM CDT) Case Report Dermatopathology Report Case: [id number] Authorizing Provider: Karis James MD Collected: 05/08/2025 08:15 AM Ordering Location: [facility] - Received: 05/08/2025 02:12 PM DermPath Lab [...] characteristic determined by the Dermatopathology Laboratory at [facility], directed by Dr. Shereen Awan. These tests need not be, and therefore are not, approved by the [place] Food and Drug Administration. The tests are used for clinical purposes. Billing Codes Specimen Charges Stain Charges 55648 1 1:08 PM CDT DERMATOPATHOLOGY LABORATORY Embedded Images 1:08 PM CDT DERMATOPATHOLOGY LABORATORY Pathology/Cytolo gy TISSUE SPECIMEN FROM SKIN / Unknown 05/08/2025 8:15 AM CDT 05/08/2025 2:12 PM CDT us Karis James MD LAB - PATHOLOGY/CYTOLOGY ORD ERABLES Final Result DERMATOPATHOLOGY LABORATORY [facility] - Department of Dermatology [address], [address] [phone] documented in this encounter Visit Diagnoses Diagnosis Neoplasm of uncertain behavior of skin documented in this encounter Care Teams Writer Producer Relationship Specialty Start Date End Date Jc Ascencio MD [address] [place] [phone] PCP - General 01/09/14 documented as of this encounter
--- OUTSIDE RECORDS SUMMARY | 2025-07-24 07:59 | XMS_ITS | Encounter Summary ---
Author Organization [facility] Address [address] [place] [address] Care Team Providers Care Supervisor Labor Gang Name Role Phone Jc Ascencio MD Primary Care Provider +1- [phone] Encounter Details Date Type Department Care Team (Late st Contact Info) Description 08/10/2023 Lab Requisition [facility] - DermPath Lab [address] [facility], [place] [phone] Karis James MD [address] [facility] 3 [place] [address] Social History Tobacco Use Types Packs/Day Years Used Date Smoking Tobacco: Former Smokeless Tobacco: Never Alcohol Use Standard Drinks/Week Comments Yes 0 (1 standard drink = 0.6 oz pur e alcohol) Sex and Gender Information Value Date Recorded Sex Assigned at Not on file Legal 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 Male 5:58 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 Gender Identity Not on file Sexual Orientation Not on file documented as of this encounter Plan of Treatment Not on file documented as of this encounter Procedures Procedure Name Priority Date/Time Associated Diagnosis Comments DERMATOPATHOLOGY Routine 08/10/2023 11:0 7 AM VIDEO EDITING INTERN documented in this encounter Results * DERMATOPATHOLOGY (08/10/2023 11:07 AM VIDEO EDITING INTERN) Case Report Dermatopathology Report Case: [id number] Authorizing Provider: Karis James MD Collected: 08/10/2023 11:07 AM Ordering Location: [facility] DermPath Lab Received: 08/11/2023 12:52 PM Pathologist: Jessika Roldan MD Specimens: A) - Skin, crown B) - Skin, left eyelid 3 3:35 PM [facility] DERMATOPATHOLOGY LABORATORY Final Diagnosis Specimen A. 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 Jar 0. 3 3:35 PM [facility] DERMATOPATHOLOGY LABORATORY Microscopic Description Specimen [...] submitting tissue for direct immunofluorescence. 3:35 PM [facility] DERMATOPATHOLOGY LABORATORY Disclaimer An external and internal positive and negative controls are appropriate for the histochemical, immunohistochemical and immunofluorescence stain(s) in this case (if any), except where stated explicitly. The performance characteristics of the stain(s) cited in this report were developed and its performance characteristic determined by the Dermatopathology Laboratory at [facility], directed by Dr. Shereen Awan. These tests need not be, and therefore are not, approved by the [place] Food and Drug Administration. The tests are used for clinical purposes. Billing Codes Specimen Charges Stain Charges 88840 75020 1 1 82354 18798 1 1 3 3:35 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 DERMATOPATHOLOGY LABORATORY Embedded Images 3 3:35 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 DERMATOPATHOLOGY LABORATORY Pathology/Cytology TISSUE SPECIMEN FROM SKIN / Unknown 08/10/2023 11:07 AM VIDEO EDITING INTERN 08/11/2023 12:52 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 Miscellaneous samples (specimen) TISSUE SPECIMEN FROM SKIN / Unknown 08/10/2023 11:07 AM VIDEO EDITING INTERN 08/11/2023 12:52 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 Karis James MD LAB - PATHOLOGY/CYTOLOGY ORD ERABLES Final Result DERMATOPATHOLOGY LABORATORY [facility] - Department of Dermatology [facility] [address] [place] [address], [address] [phone] documented in this encounter Visit Diagnoses Not on filedocumented in this encounter Care Teams Supervisor Labor Gang Relationship Specialty Start Date End Date Jc Ascencio MD [address] [place] [phone] PCP - General 01/09/14 documented as of this encounter
[2025-07-24 12:54] LABS: Hematocrit 44.2 % (42.0-52.0); Hemoglobin 14.1 g/dL (14.0-18.0); Immature Granulocyte Percent A 0.3 % (0-0.5); Lymphocytes Absolute Auto 1.90 K/mm3 (0.9-3.2); Mean Corpuscular HGB Conc 31.9 g/dl (32-36); Mean Corpuscular Hemoglobin 28.9 pg (26-34); Mean Corpuscular Volume 90.6 fl (80-100); Nucleated Red Blood Cells Absolute Auto 0.000 K/mm3 (0.0-0.012); Nucleated Red Blood Cells Perc 0.0 % (0.0-0.2); Platelet Count Result 183 k/mm3 (150-375); Red Blood Count 4.88 M/mm3 (4.6-6.20); White Blood Count 5.8 K/mm3 (4.5-10.0)
[2025-07-24 13:01] LABS: Alanine Aminotransferase 23 U/L (6-50); Albumin Level 4.6 g/dL (3.5-5.1); Alkaline Phosphatase 59 U/L (38-126); Anion Gap 5 mmol/L (4-12); Aspartate Amino Transferase 48 U/L (17-59); Bilirubin,Total 1.4 mg/dL (0.2-1.3); Blood Urea Nitrogen 22 mg/dL (9-20); Calcium 9.9 mg/dL (8.4-10.2); Carbon Dioxide 30 mmol/L (22-30); Chloride 103 mmol/L (98-107); Cholesterol 170 mg/dL (0-200); Estimated Glomerular Filt Rate > 60; Glucose 107 mg/dL (65-110); HDL Direct 61 mg/dL; Potassium 4.6 mmol/L (3.4-5.0); Sodium 138 mmol/L (137-145); Total Protein 7.5 g/dL (6.3-8.2); Triglycerides 86 mg/dL (<150)
[2025-07-24 13:37] LABS: Thyroid Stimulating Hormone 1.550 uIU/mL (0.465-4.680)
[2025-07-25 18:03] LABS: Hemoglobin A1C 5.8 % (<5.7)
== END 2025-07-24 07:56 | disposition home or self-care (01) ==
LOC: ANHGOSHLAB 07:56
PROVIDERS: PCP Family Medicine; Visit Provider Nurse Practitioner Family
DX: R73.01 Impaired fasting glucose (principal); E78.2 Mixed hyperlipidemia; E80.4 Gilbert syndrome; I10 Essential (primary) hypertension
CPT/HCPCS: 36415; 80053; 80061; 83036; 84443; 85025